=== PATIENT | male | born 1970 | race Caucasian/White ===

== ENCOUNTER 2016-12-11 09:48 | Inpatient (IN) | payer OTHER ==
[~2016-12-11] VITALS: Ht 170.2 cm; Wt 102.8 kg
[~2016-12-11 09:48] MED LIST: ATEN-100 PO; NIAC100T3 PO; SIMV20TA PO
[2016-12-11] MEDS: NS 1000P @30 MLS/HR (KVO) IV SCH (10:45)
[2016-12-11 11:31] VITALS: BP 114/85; PULSE 82; RESP 18; TEMP 98.3; O2SAT 96
[2016-12-11] MEDS ORDERED: NITR0.4S SL (11:43)
[2016-12-11] MEDS ORDERED: ASPI1TAB69 PO (11:43)
[2016-12-11] MEDS ORDERED: ATOR40TA16 PO (11:43)
[2016-12-11] MEDS ORDERED: ATEN25TA PO (11:43)
[2016-12-11] MEDS ORDERED: GAS-80CH CHEW (11:43)
[2016-12-11] MEDS ORDERED: PROT40TA PO (11:43)
[2016-12-11] MEDS ORDERED: METF500T PO (11:43)
[2016-12-11] MEDS ORDERED: MIDAZOLAM HCL 2 MG/2 ML VIAL ONE (12:29)
[2016-12-11] MEDS ORDERED: HEPARIN-NS/PF INJ 500 ML ONE (12:29)
[2016-12-11] MEDS ORDERED: HEPARIN SODIUM - IV 10,000 UNITS/10 ML VIAL ONE (12:30)
[2016-12-11] MEDS ORDERED: NITROGLYCERIN INJ 5 ML ONE (12:30)
[2016-12-11] MEDS ORDERED: MISC INFORMATION XX ONE (13:15)
[2016-12-11] MEDS ORDERED: ONDANSETRON HCL 4 MG/2 ML VIAL IVP PRN (13:15)
[2016-12-11] MEDS ORDERED: oxyCODONE/ACETAMINOPHEN 5 MG/325 MG TAB PO PRN (13:15)
[2016-12-11] MEDS ORDERED: BACITRACIN OINT 0.9 GM PKT TOP ONE (13:30)
[2016-12-11] MEDS ORDERED: IODIXANOL 320 MG/ML 50 ML VIAL (for Cath Lab) IV ONE (14:16)
[2016-12-11] MEDS ORDERED: IODIXANOL 320 MG/ML 100 ML VIAL (for Cath Lab) OTHER ONE (14:16)
[2016-12-11] MEDS ORDERED: CHLORHEXIDINE GLUCONATE 4% SOLN 120 ML BTL TOPICAL SCH (15:15)
[2016-12-11] MEDS ORDERED: SODIUM CHLORIDE 0.9% FLUSH 5 ML FLUSH IV FLUSH PRN (15:15)
[2016-12-11] MEDS ORDERED: METOPROLOL TARTRATE 25 MG TAB PO SCH (15:15)
[2016-12-11] MEDS ORDERED: INSULIN REGULAR (IV INFUSION) 100 UNITS in SODIUM CHLORIDE 0.9% INJ 100 ML IV SCH (15:15)
[2016-12-11] MEDS ORDERED: ceFAZolin 2 GM PREMIX 50 ML IV SCH (15:15)
[2016-12-11] MEDS ORDERED: CEFAZOLIN INJ 500 MG in SODIUM CHLORIDE 0.9% IRR BTL 500 ML IRRIGATION SCH (15:15)
[2016-12-11] MEDS ORDERED: ACETAMINOPHEN 325 MG TAB PO PRN (15:45)
[2016-12-11] MEDS ORDERED: SODIUM CHLORIDE 0.9% FLUSH 5 ML FLUSH FLUSH PRN (15:45)
[2016-12-11] MEDS ORDERED: NALOXONE HCL 0.4 MG/ML AMP IV PRN (15:45)
[2016-12-11] MEDS ORDERED: SIMETHICONE 80 MG CHEWABLE TAB CHEW PRN (15:45)
--- NOTE | 2016-12-11 16:00 | RADRPT ---
EXAM DATE/TIME: 12/11/2016 15:24 [facility] COMPARISON: No previous studies available for comparison. INDICATIONS : Evaluate for pneumonia, pneumothorax, or any communicable disease. Pre op CABG. MEDICAL HISTORY : None. SURGICAL HISTORY : None. ENCOUNTER: Initial ACUITY: 1 day PAIN SCORE: 0/10 LOCATION: Bilateral chest FINDINGS: A single view of the chest demonstrates the lungs to be symmetrically aerated without evidence of mas s, infiltrate or effusion. The cardiomediastinal contours are unremarkable. Osseous structures are intact. CONCLUSION: 1. No acute cardiopulmonary findings are identified. Nilton Ansari MD on December 11, 2016 at 15:58 Board Certified Radiologist. This report was verified electronically.
--- NOTE | 2016-12-11 16:10 | PD.CAR.PN ---
CVT Progress Note Subjective/Hospital Course: sts data discussed with pt RISK SCORES About the STS Risk Calculator Procedure: CAB Only Risk of Mortality: 0.421% Morbidity or Mortality: 7.923% Long Length of Stay: 2.118% Short Length of Stay: 67.903% Permanent Stroke: 0.354% Prolonged Ventilation: 5.767% DSW Infection: 0.343% Renal Failure: 1.149% Reoperation: 3.012% Objective: Vital Signs Date Time Temp Pulse Resp B/P Pulse Ox O2 Delivery O2 Flow Rate FiO2 12/11/16 11:31 98.3 82 18 114/85 96 Labs: Laboratory Tests Test 12/11/16 12/11/16 12/11/16 10:20 10:35 15:49 Blood Type O POSITIVE O POSITIVE O POSITIVE Antibody Screen NEGATIVE Blood Bank Comment Crossmatch Leukocyte-Reduced Red Blood Cells Usha Flynn Dec 11, 2016 16:10
[2016-12-11 16:21] LABS: AUTOMATED NEUTROPHIL # 5.3 TH/MM3 (1.8-7.7); BASOPHIL # 0.3 TH/MM3 (0-0.2); BASOPHIL % 3.4 % (0.0-2.0); EOSINOPHIL # 0.1 TH/MM3 (0-0.4); EOSINOPHIL % 1.8 % (0.0-4.0); HEMATOCRIT 42.9 % (39.0-51.0); HEMO FLAGS DIFF FINAL; LYMPH % 18.3 % (9.0-44.0); LYMPHOCYTE # 1.4 TH/MM3 (1.0-4.8); MEAN CORPUSCULAR HEMOGLOBIN 28.3 PG (27.0-34.0); MONO % 5.5 % (0.0-8.0); PLATELET COUNT 178 TH/MM3 (150-450); RED BLOOD COUNT 5.16 MIL/MM3 (4.50-5.90); RED CELL DISTRIBUTION WIDTH 13.8 % (11.6-17.2); WHITE BLOOD COUNT 7.5 TH/MM3 (4.0-11.0)
[2016-12-11 16:27] LABS: PROTHROMBIN TIME - PATIENT 10.5 SEC (9.8-11.6)
[2016-12-11 16:32] LABS: HEMOGLOBIN A1a 1.6 %; HEMOGLOBIN A1b 1.9 %; HEMOGLOBIN Ao 82.9 %; HEMOGLOBIN LA1C 2.3 %; HEMOGLOBIN P3 4.1 %
[2016-12-11 16:42] LABS: ANION GAP 9 MEQ/L (5-15); BICARBONATE 25.2 MEQ/L (21.0-32.0); BLOOD UREA NITROGEN 15 MG/DL (7-18); CHLORIDE 108 MEQ/L (98-107); GLOMERULAR FILTRATION RATE 82 ML/MIN (>89); POTASSIUM 3.8 MEQ/L (3.5-5.1); SODIUM (NA) 142 MEQ/L (136-145)
[2016-12-11 19:00] VITALS: PULSE 90
[2016-12-11 19:06] LABS: BLOOD, URINE TRACE (NEG); COMMENT (UR) CATH-CULT NOT IND; CULTURE IF INDICATED CATH CULTURE NOT IND; GLUCOSE,URINE NEG (NEG); KETONE, URINE NEG (NEG); MUCUS URINE FEW /lpf (OCC); NITRITE,URINE NEG (NEG); URINE COLOR YELLOW (YELLW/STRAW)
[2016-12-11 20:00] VITALS: BP 139/84; PULSE 88; PULSE 94; RESP 18; TEMP 98.3; O2SAT 98
--- NOTE | 2016-12-11 20:08 | RADRPT ---
EXAM DATE/TIME: 12/11/2016 17:21 [facility] COMPARISON: No previous studies available for comparison. INDICATIONS : Preop CABG. MEDICAL HISTORY : Hypertension. Gastroesophageal reflux disease. Diabetes mellitus type 2. Hyperlipidemia. SURGICAL HISTORY : Cardiac cath. ENCOUNTER: Initial ACUITY: 1 week PAIN SCORE: 0/10 LOCATION: Bilateral neck PEAK SYSTOLIC VELOCITIES (cm/sec): ICA/CCA RATIO: Right: 1.3 Left: 1.0 ICA: Right: 96 Left: 78 CCA: Right: 73 Left: 78 ECA: Right: 86 Left: 81 VERTEBRAL: Right: 41 antegrade Left: 68 antegrade Elevated flow velocities and ICA/CCA ratios have been found to correlate with increased degrees of vessel stenosis, calculated as percentage of diameter relative to a normal segment of distal ICA/CCA FINDINGS: RIGHT CAROTID: No significant stenosis is visualized. The waveforms are within normal limits. LEFT CAROTID: No significant stenosis is visualized. The waveforms are within normal limits. VERTEBRAL ARTERIES: Antegrade flow is seen in both vertebral arteries. MISCELLANEOUS: None. CONCLUSION: 1. Minimal visible plaque around the right carotid bifurcation. No hemodynamically significant stenos is. Rene Dumont MD on December 11, 2016 at 20:03 Board Certified Radiologist. This report was verified electronically.
--- NOTE | 2016-12-11 20:10 | RADRPT ---
EXAM DATE/TIME: 12/11/2016 17:40 [facility] COMPARISON: No previous studies available for comparison. INDICATIONS : Preop cardiac surgery. MEDICAL HISTORY : Gastroesophageal reflux disease. Hypertension. Diabetes mellitus type 2. Hyperlipidemia. SURGICAL HISTORY : Cardiac cath. ENCOUNTER: Initial ACUITY: 1 week PAIN SCORE: 0/10 LOCATION: Bilateral leg. TECHNIQUE: Venous ultrasound of the left and right leg was performed from the inguinal ligament to the proximal calf. Real-time, color Doppler and spectral tracing, compression and augmentation techniques were us ed. FINDINGS: RIGHT LEG: There is normal compressibility of the deep venous system from the inguinal region to the proximal ca lf. No echogenic clot is seen in the lumen of the common femoral, femoral, popliteal, and posterior tibial veins. There is a normal response of the venous system to proximal and distal augmentation an d respiration. LEFT LEG: There is normal compressibility of the deep venous system from the inguinal region to the proximal ca lf. No echogenic clot is seen in the lumen of the common femoral, femoral, popliteal, and posterior tibial veins. There is a normal response of the venous system to proximal and distal augmentation an d respiration. CONCLUSION: Normal examination. Rene Dumont MD on December 11, 2016 at 20:06 Board Certified Radiologist. This report was verified electronically.
--- NOTE | 2016-12-11 20:24 | RADRPT ---
EXAM DATE/TIME: 12/11/2016 17:48 [facility] COMPARISON: No previous studies available for comparison. INDICATIONS : Preop cardiac surgery. MEDICAL HISTORY : Hypertension. Gastroesophageal reflux disease. Diabetes mellitus type 2. Hyperlipidemia. SURGICAL HISTORY : Cardiac cath. ENCOUNTER: Initial ACUITY: 1 week PAIN SCORE: 0/10 LOCATION: Bilateral leg. GREATER SAPHENOUS VEIN THIGH: PROXIMAL: Right 5 mm Left 5 mm MID: Right 3 mm Left 3 mm DISTAL: Right 3 mm Left 3 mm CALF: PROXIMAL: Right 2 mm Left 3 mm MID: Right 2 mm Left 2 mm DISTAL: Right 1 mm Left 3 mm FINDINGS: The venous system of the lower extremities are patent by color Doppler imaging. Measurements of the leg veins (in mm) are listed above. CONCLUSION: Normal examination for a patient of this age. Rene Dumont MD on December 11, 2016 at 20:09 Board Certified Radiologist. This report was verified electronically.
[2016-12-11 21:00] VITALS: PULSE 83
[2016-12-11] MEDS ORDERED: SODIUM CHLORIDE 0.9% FLUSH 5 ML FLUSH IV FLUSH SCH (21:00)
[2016-12-11] MEDS: SODIUM CHLORIDE 0.9% FLUSH 5 ML FLUSH FLUSH SCH (21:00)
[2016-12-11] MEDS: DOCUSATE SODIUM 100 MG CAP PO SCH (21:00)
[2016-12-11] MEDS: ATORVASTATIN 40 MG TAB PO SCH (21:48)
[2016-12-11] MEDS: ATENOLOL 25 MG TAB PO SCH (21:48)
[2016-12-11 22:00] VITALS: PULSE 84
[2016-12-11 23:00] VITALS: BP 146/92; PULSE 73; PULSE 79; RESP 18; TEMP 98; O2SAT 98
[2016-12-12] VITALS (25 sets, daily range): BP systolic 103–142; BP diastolic 56–84; PULSE 63–95; RESP 10–20; TEMP 98.4–99.4; O2SAT 92–98
[2016-12-12] MEDS ORDERED: LIDOCAINE HCL 1% 30 ML VIAL OTHER ONE (05:00)
[2016-12-12] MEDS ORDERED: VECURONIUM BROMIDE 10 MG VIAL IV ONE (05:00)
[2016-12-12] MEDS ORDERED: ARTIFICIAL TEARS OPTH OINT 3.5 APPLIC/3.5 GM TUBO ONE ×2 (05:00→11:21)
[2016-12-12] MEDS ORDERED: DOPamine INJ PREMIX 500 ML IV ONE (05:00)
[2016-12-12] MEDS ORDERED: CALCIUM CHLORIDE 10% SOLN 1 GRAM/10 ML SYR IV ONE (05:00)
[2016-12-12] MEDS ORDERED: DEXMEDETOMIDINE INJ 50 ML IV ONE (05:00)
[2016-12-12] MEDS ORDERED: PHENYLEPHRINE HCL 10 MG/ML VIAL IV ONE (05:00)
[2016-12-12] MEDS ORDERED: NITROGLYCERIN-DEXTROSE INJ 250 ML IV ONE (05:00)
[2016-12-12] MEDS ORDERED: MAGNESIUM SULFATE 1000 MG/2 ML VIAL (PED) IV ONE (05:00)
[2016-12-12] MEDS ORDERED: AMIODARONE HCL 150 MG/3 ML VIAL IV ONE (05:00)
[2016-12-12] MEDS ORDERED: PROTAMINE SULFATE 250 MG/25 ML VIAL IV ONE ×2 (05:00→12:13)
[2016-12-12] MEDS ORDERED: HEPARIN SODIUM - SQ 10,000 UNITS/ML VIAL SQ ONE (05:00)
[2016-12-12] MEDS ORDERED: GLYCOPYRROLATE 0.2 MG/ML VIAL IV ONE (05:00)
[2016-12-12] MEDS ORDERED: AMINOCAPROIC ACID INJ 250 MG/ML 20 ML VIAL IV ONE (05:00)
[2016-12-12 07:00] LABS: AUTOMATED NEUTROPHIL # 6.2 TH/MM3 (1.8-7.7); BASOPHIL # 0.1 TH/MM3 (0-0.2); BASOPHIL % 0.9 % (0.0-2.0); EOSINOPHIL # 0.2 TH/MM3 (0-0.4); EOSINOPHIL % 2.2 % (0.0-4.0); HEMATOCRIT 45.7 % (39.0-51.0); HEMO FLAGS DIFF FINAL; LYMPH % 22.2 % (9.0-44.0); MEAN CELL VOLUME 84.1 FL (80.0-100.0); MEAN CORPUSCULAR HEMOGLOBIN 27.9 PG (27.0-34.0); MEAN CORPUSCULAR HGB CONC 33.2 % (32.0-36.0); MONO % 7.2 % (0.0-8.0); NEUT % 67.5 % (16.0-70.0); PLATELET COUNT 196 TH/MM3 (150-450); RED BLOOD COUNT 5.43 MIL/MM3 (4.50-5.90); RED CELL DISTRIBUTION WIDTH 13.7 % (11.6-17.2); WHITE BLOOD COUNT 9.1 TH/MM3 (4.0-11.0)
[2016-12-12 07:20] LABS: BICARBONATE 27.2 MEQ/L (21.0-32.0); POTASSIUM 4.2 MEQ/L (3.5-5.1)
--- NOTE | 2016-12-12 08:23 | PD.CARD.PN ---
Subjective Subjective Remarks doing well no events overnight Objective Medications Active Medications Acetaminophen (Tylenol) 650 mg Q4H PRN PO; Start 12/11/16 at 15:45 Aspirin (Ecotrin Ec) 81 mg DAILY PO; Start 12/12/16 at 09:00; Status Future Hold Atenolol (Tenormin) 25 mg BID PO Last administered on 12/11/16 21:48; Admin Dose 25 MG; Start 12/11/16 at 21:00 Atorvastatin Calcium (Lipitor) 40 mg HS PO Last administered on 12/11/16 21:48 ; Admin Dose 40 MG; Start 12/11/16 at 21:00 Bacitracin (Bacitracin Oint Packet) 0.9 gm ONCE ONCE TOP; Start 12/11/16 at 13: 30; Stop 12/11/16 at 13:31; Status DC Docusate Sodium (Colace) 100 mg Q12HR PO; Start 12/11/16 at 21:00 Fentanyl Citrate (fentaNYL INJ) 100 mcg STK-MED ONCE .ROUTE Last administered on 12/11/16 12:30; Admin Dose 100 MCG; Start 12/11/16 at 12:30; Stop 12/11/16 at 12:31; Status DC Heparin Sodium (Porcine) 94848 units 10,000 units STK-MED ONCE .ROUTE Last administered on 12/11/16 12:30; Admin Dose 10,000 UNITS; Start 12/11/16 at 12: 30; Stop 12/11/16 at 12:31; Status DC Heparin Sodium/ Sodium Chloride (Heparin-NS/Pf Inj) 500 ml @ As Directed STK- MED ONCE .ROUTE Last administered on 12/11/16 12:29; Admin Dose 100 MLS/HR; Start 12/11/16 at 12:29; Stop 12/11/16 at 12:30; Status DC Iodixanol (VISIPAQUE 320 INJ (Charge Aide)) 50 ml STK-MED ONCE IV; Start 12/11/16 at 14:16; Stop 12/11/16 at 14:17; Status DC Iodixanol (VISIPAQUE 320 INJ (Charge Aide)) 100 ml STK-MED ONCE OTHER; Start at 14:16; Stop 12/11/16 at 14:17; Status DC IV Flush (NS Flush) 2 ml BID FLUSH Last administered on 12/11/16 21:00; Admin Dose 2 ML; Start 12/11/16 at 21:00 IV Flush (NS Flush) 2 ml BID IV FLUSH; Start 12/11/16 at 21:00; Stop 12/11/16 at 21:00; Status DC IV Flush (NS Flush) 2 ml UNSCH PRN FLUSH; Start 12/11/16 at 15:45 IV Flush (NS Flush) 2 ml UNSCH PRN IV FLUSH; Start 12/11/16 at 15:15; Stop at 15:48; Status DC Midazolam HCl (Versed Inj) 2 mg STK-MED ONCE .ROUTE Last administered on 12:29; Admin Dose 2 MG; Start 12/11/16 at 12:29; Stop 12/11/16 at 12:30; Status DC Miscellaneous Information 1 ONCE ONCE XX; Start 12/11/16 at 13:15; Stop at 13:29; Status DC Naloxone HCl (Narcan Inj) 0.4 mg UNSCH PRN IV; Start 12/11/16 at 15:45 Nitroglycerin (Nitroglycerin Inj) 5 ml @ As Directed STK-MED ONCE .ROUTE Last administered on 12/11/16 12:30; Admin Dose 1 MLS/HR; Start 12/11/16 at 12:30; Stop 12/11/16 at 12:31; Status DC Ondansetron HCl (Zofran Inj) 4 mg Q6H PRN IVP; Start 12/11/16 at 13:15; Stop at 15:50; Status DC Ondansetron HCl (Zofran Inj) 4 mg Q6H PRN IVP; Start 12/11/16 at 15:45 Oxycodone/ Acetaminophen (Percocet 5-325 Mg) 1 tab Q4H PRN PO; Start 12/11/16 at 13:15 Oxycodone/ Acetaminophen (Percocet 5-325 Mg) 2 tab Q4H PRN PO; Start 12/11/16 at 13:15 Pantoprazole Sodium (Protonix) 40 mg DAILY PO; Start 12/11/16 at 15:45 Simethicone (Mylicon Chew) 80 mg QID PRN CHEW; Start 12/11/16 at 15:45 Sodium Chloride 1,000 ml @ 30 mls/hr Q24H IV; Start 12/11/16 at 10:45 Vital Signs / I&O Vital Signs Date Time Temp Pulse Resp B/P Pulse Ox O2 Delivery O2 Flow Rate FiO2 12/12/16 07:00 98.5 69 20 142/84 98 12/12/16 07:00 73 12/12/16 06:00 76 12/12/16 05:00 70 12/12/16 04:00 63 12/12/16 03:00 76 12/12/16 02:00 79 12/12/16 01:00 79 12/12/16 00:00 68 12/11/16 23:00 79 12/11/16 23:00 98.0 73 18 146/92 98 12/11/16 22:00 84 12/11/16 21:00 83 12/11/16 20:00 98.3 88 18 139/84 98 12/11/16 20:00 94 12/11/16 19:00 90 12/11/16 13:24 95 Room Air 12/11/16 11:31 98.3 82 18 114/85 96 I/O 12/11/16 12/11/16 12/11/16 12/12/16 12/12/16 12/12/16 07:00 15:00 23:00 07:00 15:00 23:00 Intake Total 240 ml Output Total 300 ml Balance -60 ml Intake Oral 240 ml Output Urine Total 300 ml # Bowel Movements 1 Physical Exam GENERAL: SKIN: Warm and dry. HEAD: Normocephalic. EYES: No scleral icterus. No injection or drainage. NECK: Supple, trachea midline. No JVD or lymphadenopathy. CARDIOVASCULAR: Regular rate and rhythm without murmurs, gallops, or rubs. RESPIRATORY: Breath sounds equal bilaterally. No accessory muscle use. GASTROINTESTINAL: Abdomen soft, non-tender, nondistended. MUSCULOSKELETAL: No cyanosis, or edema. BACK: Nontender without obvious deformity. No CVA tenderness. Laboratory Laboratory Tests Test 12/11/16 12/11/16 12/11/16 12/11/16 10:20 10:35 15:49 15:50 Blood Type O POSITIVE O POSITIVE O POSITIVE Antibody Screen NEGATIVE Blood Bank Comment Crossmatch Leukocyte-Reduced Red Blood Cells White Blood Count 7.5 TH/MM3 Red Blood Count 5.16 MIL/MM3 Hemoglobin 14.6 GM/DL Hematocrit 42.9 % Mean Corpuscular Volume 83.0 FL Mean Corpuscular Hemoglobin 28.3 PG Mean Corpuscular Hemoglobin 34.0 % Concent Red Cell Distribution Width 13.8 % Platelet Count 178 TH/MM3 Mean Platelet Volume 9.1 FL Neutrophils (%) (Auto) 71.0 % Lymphocytes (%) (Auto) 18.3 % Monocytes (%) (Auto) 5.5 % Eosinophils (%) (Auto) 1.8 % Basophils (%) (Auto) 3.4 % Neutrophils # (Auto) 5.3 TH/MM3 Lymphocytes # (Auto) 1.4 TH/MM3 Monocytes # (Auto) 0.4 TH/MM3 Eosinophils # (Auto) 0.1 TH/MM3 Basophils # (Auto) 0.3 TH/MM3 CBC Comment DIFF FINAL Differential Comment Prothrombin Time 10.5 SEC Prothromb Time International 1.0 RATIO Ratio Test 12/11/16 12/11/16 12/11/16 12/12/16 15:59 18:45 20:45 06:04 Sodium Level 142 MEQ/L 141 MEQ/L Potassium Level 3.8 MEQ/L 4.2 MEQ/L Chloride Level 108 MEQ/L 107 MEQ/L Carbon Dioxide Level 25.2 MEQ/L 27.2 MEQ/L Anion Gap 9 MEQ/L 7 MEQ/L Blood Urea Nitrogen 15 MG/DL 13 MG/DL Creatinine 0.98 MG/DL 1.02 MG/DL Estimat Glomerular Filtration 82 ML/MIN 78 ML/MIN Rate Random Glucose 176 MG/DL 129 MG/DL Hemoglobin A1c 6.8 % Calcium Level 8.2 MG/DL 8.7 MG/DL Urine Color YELLOW Urine Turbidity CLEAR Urine pH 6.0 Urine Specific [place] GREATER THAN 1.050 Urine Protein TRACE mg/dL Urine Glucose (UA) NEG mg/dL Urine Ketones NEG mg/dL Urine Occult Blood TRACE Urine Nitrite NEG Urine Bilirubin NEG Urine Urobilinogen LESS THAN 2.0 MG/DL Urine Leukocyte Esterase NEG Urine RBC 5 /hpf Urine WBC LESS THAN 1 /hpf Urine Mucus FEW /lpf Microscopic Urinalysis Comment CATH-CULT NOT IND Nasal Screen MRSA (PCR) NEGATIVE White Blood Count 9.1 TH/MM3 Red Blood Count 5.43 MIL/MM3 Hemoglobin 15.2 GM/DL Hematocrit 45.7 % Mean Corpuscular Volume 84.1 FL Mean Corpuscular Hemoglobin 27.9 PG Mean Corpuscular Hemoglobin 33.2 % Concent Red Cell Distribution Width 13.7 % Platelet Count 196 TH/MM3 Mean Platelet Volume 9.2 FL Neutrophils (%) (Auto) 67.5 % Lymphocytes (%) (Auto) 22.2 % Monocytes (%) (Auto) 7.2 % Eosinophils (%) (Auto) 2.2 % Basophils (%) (Auto) 0.9 % Neutrophils # (Auto) 6.2 TH/MM3 Lymphocytes # (Auto) 2.0 TH/MM3 Monocytes # (Auto) 0.7 TH/MM3 Eosinophils # (Auto) 0.2 TH/MM3 Basophils # (Auto) 0.1 TH/MM3 CBC Comment DIFF FINAL Differential Comment Imaging Last Impressions Lower Extremity Ultrasound 12/11/16 0000 Signed Impressions: Service Date/Time: Sunday, December 11, 2016 17:48 - CONCLUSION: Normal examination for a patient of this age. Rene Dumont MD Chest X-Ray 12/11/16 0000 Signed Impressions: Service Date/Time: Sunday, December 11, 2016 15:24 - CONCLUSION: 1. No acute cardiopulmonary findings are identified. Nilton Ansari MD Carotid Artery Ultrasound 12/11/16 0000 Signed Impressions: Service Date/Time: Sunday, December 11, 2016 17:21 - CONCLUSION: 1. Minimal visible plaque around the right carotid bifurcation. No hemodynamically significant stenosis. Rene Dumont MD Assessment and Plan Assessment and Plan unstable angina - plan for CABG today Minor,Brandan Saez MD Dec 12, 2016 08:23
--- NOTE | 2016-12-12 08:34 | MH ---
cc: KELLY FISHER DATE OF ADMISSION 12/11/2016 DATE OF 1970. HISTORY OF THE PRESENT ILLNESS A 46-year-old male, patient of Dr. Gary Mesa, Dr. Stevenson apparently has been having some chest pressure on and off for the past 10 months had some loss of insurance but finally got under his 's policy but then noticed he was having some increasing chest pressure for the last two months with or without exertion, associated with some shortness of breath. He felt like after he would be eating he would have some belching and bloating. That concerned him. He has been diagnosed with some dyspepsia and gastroesophageal reflux disease and he is taking medications for that. He underwent an exercise stress test at Dr. Stevenson's office which he was positive for ischemia. He then underwent cardiac cath today by Dr. Stevenson showing a left main disease of 30%, proximal LAD 70%, mid distal LAD 30%, diagonal 75%. The circ was 75%. The OM was 95%. The RCA was 100% occluded. EF of 45%. Cardiac risk factors include age, family history, diabetes mellitus, hypertension, obese with a BMI of 35. PAST MEDICAL HISTORY 1. Hypertension. 2. Hyperlipidemia. 3. Abnormal EKG. FAMILY HISTORY Positive for mother had heart disease, had stents, hypertension, breast CA. Father is a diabetic, has had gastric bypass. SOCIAL HISTORY The patient , two children. Positive for tobacco abuse. Smokes one-pack for the last 30 years. Rare alcohol. 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 REVIEW OF SYSTEMS GENERAL: No night sweats, fever, heat or cold intolerance. SKIN: itching or hives. HEENT: No blurred vision, hearing loss. RESPIRATORY: Positive for shortness of breath when he gets chest pressure. CARDIOVASCULAR: As above in HPI. GASTROINTESTINAL: He does have frequent belching, abdominal bloating. GENITOURINARY: No burning, frequency, urgency. CENTRAL NERVOUS SYSTEM: No history of TIA, CVA, seizure disorder. ENDOCRINE: Positive for diabetes. PHYSICAL EXAMINATION VITAL SIGNS: On exam blood pressure 114/80, heart rate of 82, afebrile. GENERAL: The patient awake, alert, no acute distress. HEENT: Head is normocephalic, atraumatic. Pupils equal and reactive. Oral mucosa pink, moist. NECK: Supple. No JVD. CARDIOVASCULAR: Heart sounds S1-S2, regular rate and rhythm. No rubs, murmurs, gallops. LUNGS: Clear to auscultation. No wheezes, rales or rhonchi. ABDOMEN: Soft, nontender. No masses or organomegaly. EXTREMITIES: No cyanosis, clubbing or edema. LABORATORY FINDINGS Shows hemoglobin 15, hematocrit of 47. White cell count 8.7, platelet count 204. Sodium 138, potassium 4.6, BUN of 22 with a creatinine of 0.9. INR of 0.94. EKG shows sinus rhythm with some poor R-wave progression, some T-wave inversion in the lateral leads, inferior lateral leads. IMPRESSION A 46-year-old male with chest pain, positive stress test, positive coronary catheterization by Dr. Stevenson with an EF of 45%, multivessel disease. Cardiac films have been reviewed by Dr. Kelly Fisher. Procedures, alternatives and risks have been discussed with the patient. Plan is for possible coronary artery bypass grafting x4. To follow the case in the a.m. The patient is agreeable to proceed. In the meantime we will add additional testing to include carotid ultrasound, vein mapping and lab work. DICTATED BY: ZULLY Hardin MD YUDY Singh/KK /3:49 PM /8:25 AM
[2016-12-12] MEDS ORDERED: ASPIRIN EC 81 MG TABEC PO SCH (09:00)
[2016-12-12] MEDS: DOCUSATE SODIUM 100 MG CAP PO SCH ×2 (09:00→21:27)
[2016-12-12] MEDS: ATENOLOL 25 MG TAB PO SCH (09:45)
[2016-12-12] MEDS: PANTOPRAZOLE SOD 40 MG DELAYED RELEASE TAB PO SCH (09:45)
[2016-12-12] MEDS: SODIUM CHLORIDE 0.9% FLUSH 5 ML FLUSH FLUSH SCH ×2 (09:46→21:28)
--- NOTE | 2016-12-12 10:18 | PD.CAR.PN ---
CVT Progress Note Subjective/Hospital Course: 46/ male c/o of chest pressure off and on x 10 months, worsening with and without exertion past couple of months, underwent stress test , which showed depression in inferior lateral leads.. Then underwent heart cath per Dr Stevenson multi vessel disease EF 45 % / eval for Coronary artery Bypass grafting PMH: HTN, HLP, obesity, tobacco abuse, DM, dyspepsia, GERD 12/12 scheduled for surgery this afternoon Objective: GENERAL: SKIN: Warm and dry. HEAD: Normocephalic. EYES: No scleral icterus. No injection or drainage. NECK: Supple, trachea midline. No JVD or lymphadenopathy. CARDIOVASCULAR: Regular rate and rhythm without murmurs, gallops, or rubs. RESPIRATORY: Breath sounds equal bilaterally. No accessory muscle use. GASTROINTESTINAL: Abdomen soft, non-tender, nondistended. MUSCULOSKELETAL: No cyanosis, or edema. BACK: Nontender without obvious deformity. No CVA tenderness. Vital Signs Date Time Temp Pulse Resp B/P Pulse Ox O2 Delivery O2 Flow Rate FiO2 12/12/16 09:00 71 12/12/16 07:00 98.5 69 20 142/84 98 12/12/16 07:00 73 12/12/16 06:00 76 12/12/16 05:00 70 12/12/16 04:00 63 12/12/16 03:00 76 12/12/16 02:00 79 12/12/16 01:00 79 12/12/16 00:00 68 12/11/16 23:00 79 12/11/16 23:00 98.0 73 18 146/92 98 12/11/16 22:00 84 12/11/16 21:00 83 12/11/16 20:00 98.3 88 18 139/84 98 12/11/16 20:00 94 12/11/16 19:00 90 12/11/16 13:24 95 Room Air 12/11/16 11:31 98.3 82 18 114/85 96 Labs: Laboratory Tests Test 12/12/16 06:04 White Blood Count 9.1 TH/MM3 (4.0-11.0) Red Blood Count 5.43 MIL/MM3 (4.50-5.90) Hemoglobin 15.2 GM/DL (13.0-17.0) Hematocrit 45.7 % (39.0-51.0) Mean Corpuscular Volume 84.1 FL (80.0-100.0) Mean Corpuscular Hemoglobin 27.9 PG (27.0-34.0) Mean Corpuscular Hemoglobin 33.2 % Concent (32.0-36.0) Red Cell Distribution Width 13.7 % (11.6-17.2) Platelet Count 196 TH/MM3 (150-450) Mean Platelet Volume 9.2 FL (7.0-11.0) Neutrophils (%) (Auto) 67.5 % (16.0-70.0) Lymphocytes (%) (Auto) 22.2 % (9.0-44.0) Monocytes (%) (Auto) 7.2 % (0.0-8.0) Eosinophils (%) (Auto) 2.2 % (0.0-4.0) Basophils (%) (Auto) 0.9 % (0.0-2.0) Neutrophils # (Auto) 6.2 TH/MM3 (1.8-7.7) Lymphocytes # (Auto) 2.0 TH/MM3 (1.0-4.8) Monocytes # (Auto) 0.7 TH/MM3 (0-0.9) Eosinophils # (Auto) 0.2 TH/MM3 (0-0.4) Basophils # (Auto) 0.1 TH/MM3 (0-0.2) CBC Comment DIFF FINAL Differential Comment Sodium Level 141 MEQ/L (136-145) Potassium Level 4.2 MEQ/L (3.5-5.1) Chloride Level 107 MEQ/L (98-107) Carbon Dioxide Level 27.2 MEQ/L (21.0-32.0) Anion Gap 7 MEQ/L (5-15) Blood Urea Nitrogen 13 MG/DL (7-18) Creatinine 1.02 MG/DL (0.60-1.30) Estimat Glomerular Filtration 78 ML/MIN (>89) Rate Random Glucose 129 MG/DL (74-106) Calcium Level 8.7 MG/DL (8.5-10.1) Result Diagram: 12/12/1604 12/12/16603 Telemetry: NSR (1) Coronary artery disease Plan: for surgery today (2) Diabetes mellitus (3) Hyperlipemia (4) Tobacco abuse (5) Hypertension Usha Flynn Dec 12, 2016 10:18
[2016-12-12] MEDS: NS 1000P @30 MLS/HR (KVO) IV SCH (10:45)
[2016-12-12] MEDS ORDERED: VASOPRESSIN INJ 20 UNITS/ML VIAL ONE (11:20)
[2016-12-12] MEDS ORDERED: CARDIOPLEGIC IRR 1,000 ML ONE (11:28)
[2016-12-12] MEDS ORDERED: POTASSIUM CHLORIDE 40 MEQ/20 ML VIAL ONE ×2 (11:29)
[2016-12-12] MEDS ORDERED: ALBUMIN HUMAN 25% 12.5 GM/50 ML BAGP IV ONE (11:30)
[2016-12-12] MEDS ORDERED: SODIUM BICARBONATE 8.4% INJ 50 ML ONE (11:30)
[2016-12-12] MEDS ORDERED: MANNITOL INJ 50 ML ONE (11:30)
[2016-12-12] MEDS ORDERED: POTASSIUM CHLORIDE 20 MEQ/10 ML VIAL ONE (11:30)
[2016-12-12] MEDS ORDERED: HEPARIN SODIUM - SQ 10,000 UNITS/ML VIAL ONE ×2 (11:31→12:07)
[2016-12-12] MEDS ORDERED: HEPARIN SODIUM - IV 10,000 UNITS/10 ML VIAL ONE ×2 (11:31→12:06)
--- NOTE | 2016-12-12 12:05 | MA ---
cc: JUANA PATE DATE: 12/11/2016 PROCEDURE PERFORMED 1. Fluoroscopy with interpretation. 2. Coronary angiography. 3. Left heart catheterization. 4. Left ventriculography. METHOD The risks, benefits and alternatives were discussed with the patient. The patient understood and consented to the procedure. The patient was brought into the catheterization lab and placed on the catheterization table. The patient wrist was prepped and draped in sterile fashion. The right wrist was anesthetized with 2% lidocaine. The right radial artery was cannulated. A 6-Kinyarwanda, 7 cm sheath was placed without difficulty. 5000 units of heparin was administered. LEFT HEART CATHETERIZATION A 6-Kinyarwanda angled pigtail catheter was advanced across the aortic valve without difficulty. Intraventricular hemodynamics measured at 120/10 mmHg. LEFT VENTRICULOGRAPHY Left ventriculography was performed with right anterior oblique view using a 6-Kinyarwanda angled pigtail catheter and a 30 cc contrast injection with good opacification. Left ventricular ejection fraction visually estimated at 45-50%. There was basal inferior wall severe hypokinesis with a small aneurysm. CORONARY ANGIOGRAPHY 1. The left main coronary is small caliber size with mild disease throughout. 2. The left anterior descending coronary artery has 70% proximal stenosis at the bifurcation of a moderate-sized diagonal branch. The diagonal branch has 80% stenosis through its proximal segment. The remainder of the left anterior descending coronary has minor luminal irregularities. 3. The left circumflex gives rise to a high obtuse marginal branch which is small to moderate caliber size, 95% stenosis. There is a second and third obtuse marginal branch which are smaller caliber size also with moderate disease proximally. The circumflex also has diffuse disease throughout its mid segment. 4. The right coronary is a dominant vessel giving rise to a posterior descending branch. The right coronary is occluded in its proximal segment. There is both [id number] and [id number] collateralization. CONCLUSIONS 1. Severe three-vessel coronary artery disease. 2. Mildly reduced left ventricular systolic function with regional inferior wall akinesis in the basal segment. PLAN Given the patient's age, diabetic status in addition to multivessel disease, I think he would be best served with consideration for surgical revascularization. We will consult Dr. Kelly Fisher. MD FAYE Felipe/HECTOR Meek: 12/12/2016/8:15 AM /11:54 AM
[2016-12-12] MEDS ORDERED: VANCOMYCIN HCL 1000 MG VIAL ONE (12:07)
[2016-12-12] MEDS ORDERED: methylPREDNISolone SOD SUCC 125 MG/2 ML VIAL ONE (12:08)
[2016-12-12] MEDS ORDERED: SODIUM CHLORIDE 0.9% INJ 200 ML IV ONE (12:13)
[2016-12-12] MEDS ORDERED: NORMOSOL R INJ 2,000 ML IV ONE (12:13)
[2016-12-12] MEDS ORDERED: SODIUM CHLOR 0.9% 250 ML INJ 750 ML IV ONE (12:13)
[2016-12-12] MEDS ORDERED: LACTATED RINGER'S 1000 ML INJ 2,000 ML IV ONE (12:13)
[2016-12-12] MEDS ORDERED: SODIUM CHLORID 0.9% 500 ML INJ 500 ML IV ONE (12:13)
[2016-12-12] MEDS: PAPAVERINE INJ 60 MG, NITROGLYCERIN INJ 100 MCG, DILTIAZEM INJ 100 MG in SODIUM CHLORID... IRRIGATION SCH ×2 (14:36→14:37)
--- NOTE | 2016-12-12 16:37 | EKG ---
Date Performed: 12/11/2016 Time Performed: 10:55:36 PTAGE: 46 years EKG: Sinus rhythm Possible anterior infarct - age undetermined Inferior/lateral ST-T changes are nonspecific Abnormal ECG NO PREVIOUS TRACING DOCTOR: Mercedez Ponce Interpretating Date/Time 12/12/2016 16:34:28
[2016-12-12] MEDS ORDERED: LACTATED RINGER'S 1000 ML INJ 500 ML IV PRN (16:46)
--- NOTE | 2016-12-12 16:55 | PD.OP ---
cc: Kelly Fisher MD; Brandan Stevenson MD Operative Report Date of Surgery: Dec 12, 2016 Preoperative Diagnosis: (1) Coronary artery disease Postoperative Diagnosis: same Procedure: CABG x 3 BLOUNT to LAD - fair SVG to OM1 - good SVG to PDA - poor EVH Anesthesia: Dr. Molina Surgeon: Kelly Fisher Electrician Master(s): Jm Richardson Operation and Findings: The risks, benefits, complications, treatment options, and expected outcomes were discussed with the patient. The possibilities of reaction to medication, pulmonary aspiration, perforation of viscus, bleeding, recurrent infection, the need for additional procedures, failure to diagnose a condition, and creating a complication requiring transfusion or operation were discussed with the patient. The patient concurred with the proposed plan, giving informed consent. The site of surgery properly noted/marked. The patient was taken to Operating Room, identified as Honorio Roland and the procedure verified as CABG, EVH. A Time Out was held and the above information confirmed. Standard monitoring lines and Xiong catheter were placed. General anesthesia was induced. The patient was prepped and draped in a sterile fashion. A median sternotomy was performed and electrocautery was used to obtain hemostasis. The left internal mammary artery was procured as a pedicle from the 7th rib to the 1st rib in the usual manner. Simultaneously left greater saphenous vein was procured from the left leg using a minimally invasive endoscopic technique. The vein was prepared for anastomosis and the leg wound was irrigated and closed in 2 layers. The pericardium was opened and a pericardial sling was created using interrupted 0 silk sutures. The patient was heparinized for cardiopulmonary bypass and the distal mammary pedicle was instrumented for anastomosis. The heart was instrumented for cardiopulmonary bypass in the usual manner. Antegrade blood cardioplegia was employed. The patient was placed on cardiopulmonary bypass. An aortic cross-clamp was applied and the heart was arrested using cold blood cardioplegia. Antegrade cardioplegia was administered after he each anastomosis. After adequate arrest, the distal right coronary circulation was investigated and the PDA was opened with a [place] blade and found to be a <1 millimeter poor target. Saphenous vein was approximated to the PDA artery using a running 7 0 Prolene suture. The graft was measured for length and orientation and the proximal anastomosis was constructed to the ascending aorta using a running 5 0 Prolene suture after creating an aortotomy with a 5 millimeter punch. The 1st circumflex marginal artery was then opened with a [place] blade and found to be a 1.5 millimeter good target. The OM1 artery was intramyocardial. Saphenous vein was approximated to the OM1 artery using a running 7 0 Prolene suture. The graft was measured for length and orientation and was suspended from the pericardium. The distal LAD was opened with a [place] blade and found to be a 1.5 millimeter fair target with diffuse disease. The left internal mammary artery was approximated to the LAD using a running 7 0 Prolene suture. The pedicle was attached to the epicardium using interrupted 5 0 silk suture. The patient was systemically rewarmed and received a hotshot dose of warm blood cardioplegia. The aorta was vented and the proximal anastomosis to the OM1 graft was accomplished using a running 5 0 Prolene suture after creating an aortotomy was a 5 millimeter punch. The cross-clamp was removed and all proximal and distal anastomoses were examined for hemostasis. Temporary atrial pacing on wires were positioned and brought out through the skin in the usual manner. The patient was paced at 80 beats per minute and weaned from cardiopulmonary bypass. Protamine was given. There was no adverse reaction. Decannulation was carried out without incident. Wound was checked for hemostasis which was obtained using electrocautery. A 36 [place] mediastinal and 32 [place] left pleural chest tubes were placed and secured to the skin with 0 silk suture. The sternum was closed with stainless steel wire. The fascia was closed with 1. PDS. The subcutaneous tissue was closed using a running 2-0 Vicryl suture. The skin was closed with 4-0 Monocryl. Sterile dressings were placed. At the end of the operation, all sponge, instruments, and needle counts were correct. The patient was transferred to the CVICU in stable condition. Findings: Diffuse CAD, OM2, OM3, and PLB were too small and diseased to graft XC: 73 min CPB: 84 min Drains: mediastinal x 1 pleural x 1 Complications: none Disposition: to CVICU in stable condition Pacing Wires: 2 atrial Kelly Fisher MD Dec 12, 2016 16:55
[2016-12-12] MEDS ORDERED: ACETAMINOPHEN 650 MG SUPP RECTAL PRN (17:00)
[2016-12-12] MEDS ORDERED: CLEVIDIPINE INJ 50 ML IV SCH (17:00)
[2016-12-12] MEDS ORDERED: hydrALAZINE HCL 20 MG/ML VIAL IV PRN (17:00)
[2016-12-12] MEDS ORDERED: SODIUM CHLORIDE 0.9% FLUSH 5 ML FLUSH IV FLUSH PRN (17:00)
[2016-12-12] MEDS ORDERED: ONDANSETRON HCL 4 MG/2 ML VIAL IV PUSH PRN (17:00)
[2016-12-12] MEDS ORDERED: METOPROLOL TARTRATE 5 MG/5 ML VIAL IV PUSH PRN (17:00)
[2016-12-12] MEDS ORDERED: MAGNESIUM SULFATE INJ 2 GM in SODIUM CHLORIDE 0.9% INJ 100 ML IV PRN ×4 (17:00)
[2016-12-12] MEDS ORDERED: CALCIUM CHLORIDE INJ 1 GM in SODIUM CHLORIDE 0.9% INJ 100 ML IV PRN (17:00)
[2016-12-12] MEDS ORDERED: INSULIN REGULAR (IV INFUSION) 100 UNITS in SODIUM CHLORIDE 0.9% INJ 99 ML IV SCH (17:00)
[2016-12-12] MEDS ORDERED: ACETAMINOPHEN 325 MG TAB PO PRN (17:00)
[2016-12-12] MEDS ORDERED: POTASSIUM CHLOR 20 MEQ PREMIX 100 ML IV PRN ×3 (17:00)
[2016-12-12] MEDS ORDERED: POTASSIUM CHLORIDE 20 MEQ CONTROLLED RELEASE TAB PO PRN ×2 (17:00)
[2016-12-12] MEDS ORDERED: DEXTROSE 50% IN WATER 50 ML VIAL(D50) IV PUSH PRN (17:00)
[2016-12-12] MEDS ORDERED: CALCIUM CHLORIDE 10% 1 GRAM/10 ML VIAL IV PRN (17:00)
[2016-12-12] MEDS ORDERED: Post-op Orders (for Pharmacy) MISC OTHER ONE (17:00)
[2016-12-12] MEDS ORDERED: MIDAZOLAM HCL 5 MG/5 ML VIAL ONE (17:29)
[2016-12-12] MEDS ORDERED: fentaNYL CITRATE 1000 MCG/20 ML VIAL ONE (17:29)
[2016-12-12] MEDS ORDERED: RESP: ALBUTEROL 2.5 MG/IPRATROPIUM 0.5 MG NEB (PRN) NEB (18:00)
[2016-12-12] MEDS ORDERED: RESP: RACEPINEPHRINE 2.25% 0.5 ML NEB NEB PRN (18:00)
[2016-12-12] MEDS: ACETAMINOPHEN 1000 MG/100 ML VIAL IV SCH (18:03)
--- NOTE | 2016-12-12 18:11 | RADRPT ---
EXAM DATE/TIME: 12/12/2016 17:55 [facility] COMPARISON: CHEST SINGLE AP, December 11, 2016, 15:24. INDICATIONS : Post CABG. MEDICAL HISTORY : None. SURGICAL HISTORY : None. ENCOUNTER: Initial ACUITY: 1 day PAIN SCORE: Non-responsive. LOCATION: Bilateral chest FINDINGS: A single portable frontal view of the chest shows interval median sternotomy. Endotracheal tube tip i s 4 cm proximal to the tamra. Tip of the internal jugular vein central venous line on the right is o bscured by the spine but felt to be at the mid right atrial level. 2 thoracostomy tubes overlie the l eft hemithorax. Nasogastric tube is coiled in the fundus of the stomach. No pneumothoraces. Low lung volumes. No infiltrates or effusions. Heart is normal in size. CONCLUSION: Interval median sternotomy with life-support lines. No pneumothorax. Rahul Menendez Jr., MD on December 12, 2016 at 18:08 Board Certified Radiologist. This report was verified electronically.
[2016-12-12] MEDS: SODIUM CHLORIDE 0.9% FLUSH 5 ML FLUSH IV FLUSH SCH (21:00)
[2016-12-12] MEDS: ATORVASTATIN 40 MG TAB PO SCH (21:27)
[2016-12-12] MEDS: AMIODARONE 200 MG TAB PO SCH (21:27)
[2016-12-12] MEDS: ceFAZolin 2 GM PREMIX 50 ML IV SCH (21:28)
[2016-12-12] MEDS: oxyCODONE/ACETAMINOPHEN 5 MG/325 MG TAB PO PRN (22:35)
[2016-12-12] MEDS: RESP: ALBUTEROL 2.5 MG/IPRATROPIUM 0.5 MG NEB (SCH) NEB (23:05)
[2016-12-13] VITALS (20 sets, daily range): BP systolic 104–147; BP diastolic 62–86; PULSE 83–106; RESP 16–21; TEMP 98.6–99.4; O2SAT 92–96
[2016-12-13] MEDS: ACETAMINOPHEN 1000 MG/100 ML VIAL IV SCH ×3 (00:12→10:17)
[2016-12-13] MEDS: RESP: ALBUTEROL 2.5 MG/IPRATROPIUM 0.5 MG NEB (SCH) NEB ×4 (03:44→20:35)
[2016-12-13] MEDS: ceFAZolin 2 GM PREMIX 50 ML IV SCH ×3 (05:04→20:44)
[2016-12-13] MEDS: AMIODARONE 200 MG TAB PO SCH ×3 (05:05→20:45)
--- NOTE | 2016-12-13 05:24 | RADRPT ---
EXAM DATE/TIME: 12/13/2016 04:26 [facility] COMPARISON: CHEST SINGLE AP, December 12, 2016, 17:55. INDICATIONS : Status post CABG. MEDICAL HISTORY : Hypertension. Gastroesophageal reflux disease. Diabetes mellitus type II. Hyperlipidemia SURGICAL HISTORY : Coronary artery stent. ENCOUNTER: Subsequent ACUITY: 3 days PAIN SCORE: Non-responsive. LOCATION: Bilateral chest FINDINGS: The endotracheal tube has been removed. The chest tubes remain in place. Right-sided central line rem ains in place. No evidence of pneumothorax. Mild atelectasis in the left lung base. Right lung is antolin ar. Heart size is stable. CONCLUSION: Mild left lower lung atelectasis. Aguila Dennis MD on December 13, 2016 at 5:22 Board Certified Radiologist. This report was verified electronically.
[2016-12-13 05:32] LABS: HEMATOCRIT 38.9 % (39.0-51.0); MEAN CELL VOLUME 83.5 FL (80.0-100.0); MEAN CORPUSCULAR HEMOGLOBIN 28.1 PG (27.0-34.0); MEAN CORPUSCULAR HGB CONC 33.6 % (32.0-36.0); PLATELET COUNT 153 TH/MM3 (150-450); RED BLOOD COUNT 4.66 MIL/MM3 (4.50-5.90); RED CELL DISTRIBUTION WIDTH 13.6 % (11.6-17.2); REVIEW FLAG FINAL; WHITE BLOOD COUNT 17.9 TH/MM3 (4.0-11.0)
[2016-12-13 05:59] LABS: BICARBONATE 21.1 MEQ/L (21.0-32.0); MAGNESIUM 2.4 MG/DL (1.5-2.5); POTASSIUM 4.8 MEQ/L (3.5-5.1)
[2016-12-13] MEDS ORDERED: PANTOPRAZOLE SOD 40 MG DELAYED RELEASE TAB PO SCH (06:00)
--- NOTE | 2016-12-13 07:21 | PD.CARD.PN ---
Subjective Subjective Remarks denies any angina Objective Vital Signs / I&O Vital Signs Date Time Temp Pulse Resp B/P Pulse Ox O2 Delivery O2 Flow Rate FiO2 12/13/16 06:39 20 12/13/16 06:39 20 12/13/16 04:00 90 12/13/16 04:00 98.8 90 20 94 114/62 12/13/16 00:00 99.2 83 20 93 117/62 12/12/16 23:50 95 12/12/16 23:45 99.0 12/12/16 23:40 20 12/12/16 23:11 95 Nasal Cannula 6.00 12/12/16 20:00 98.4 83 16 109/62 92 103/56 12/12/16 19:45 94 Nasal Cannula 5 12/12/16 19:45 94 Nasal Cannula 5.00 12/12/16 19:25 99.2 12/12/16 19:15 75 12/12/16 18:20 95 50 12/12/16 18:10 98.9 12/12/16 18:00 84 12/12/16 17:52 93 100 12/12/16 17:30 99.4 12/12/16 17:15 73 12/12/16 17:15 99.4 73 10 113/56 94 119/57 12/12/16 17:15 70 12/12/16 12:00 68 12/12/16 11:00 99.0 67 20 137/84 97 12/12/16 11:00 69 12/12/16 10:00 70 12/12/16 09:00 71 I/O 12/12/16 12/12/16 12/12/16 12/13/16 12/13/16 12/13/16 07:00 15:00 23:00 07:00 15:00 23:00 Intake Total 240 ml 1100 ml 2053 ml Output Total 300 ml 310 ml 1175 ml Balance -60 ml 790 ml 878 ml Intake Oral 240 ml 480 ml IV Total 1100 ml 1573 ml Output Urine Total 300 ml 215 ml 865 ml Gastric Drainage Total 25 ml Chest Tube Drainage Total 70 ml 310 ml # Voids 3 # Bowel Movements 1 0 0 Physical Exam GENERAL: Well-nourished, well-developed patient in no apparent distress. NECK: No JVD. No carotid bruit. CARDIOVASCULAR: tachycardia, regular rhythm. S1/S2 no murmur, rub, or gallop. RESPIRATORY: No accessory muscle use. Clear to auscultation. Breath sounds equal bilaterally. GASTROINTESTINAL: Abdomen soft, non-tender, nondistended. MUSCULOSKELETAL: Extremities without clubbing, cyanosis, or edema. Laboratory Laboratory Tests Test 12/13/16 05:10 White Blood Count 17.9 TH/MM3 Red Blood Count 4.66 MIL/MM3 Hemoglobin 13.1 GM/DL Hematocrit 38.9 % Mean Corpuscular Volume 83.5 FL Mean Corpuscular Hemoglobin 28.1 PG Mean Corpuscular Hemoglobin 33.6 % Concent Red Cell Distribution Width 13.6 % Platelet Count 153 TH/MM3 Mean Platelet Volume 8.9 FL Sodium Level 143 MEQ/L Potassium Level 4.8 MEQ/L Chloride Level 110 MEQ/L Carbon Dioxide Level 21.1 MEQ/L Anion Gap 12 MEQ/L Blood Urea Nitrogen 11 MG/DL Creatinine 0.91 MG/DL Estimat Glomerular Filtration 89 ML/MIN Rate Random Glucose 137 MG/DL Calcium Level 8.0 MG/DL Magnesium Level 2.4 MG/DL Assessment and Plan Problem List: (1) Coronary artery disease (2) Diabetes mellitus (3) Hyperlipemia (4) Tobacco abuse (5) Hypertension Assessment and Plan CAD s/p CABG x 3 vessels doing well, continue present medical regimen, sign off. He will f/u in the outpatient setting Rajan Nicole Dec 13, 2016 07:21
--- NOTE | 2016-12-13 08:11 | EKG ---
Date Performed: 12/13/2016 Time Performed: 04:26:16 PTAGE: 46 years EKG: Sinus rhythm rSr'(V1) - probable normal variant Poor R wave progression - probable normal variant Low QRS voltage s in precordial leads Borderline ECG NO SIGNIFICANT CHANGE FROM PRIOR ELECTROCARDIOGRAM. PREVIOUS TRACING : 12/11/2016 10.55 DOCTOR: Vasu Escalante Interpretating Date/Time 12/13/2016 08:09:41
[2016-12-13] MEDS: oxyCODONE/ACETAMINOPHEN 5 MG/325 MG TAB PO PRN ×2 (08:39→16:28)
[2016-12-13] MEDS: SODIUM CHLORIDE 0.9% FLUSH 5 ML FLUSH FLUSH SCH (08:39)
[2016-12-13] MEDS: PANTOPRAZOLE SOD 40 MG DELAYED RELEASE TAB PO SCH (08:39)
[2016-12-13] MEDS: DOCUSATE SODIUM 100 MG CAP PO SCH ×2 (08:39→20:45)
[2016-12-13] MEDS: SODIUM CHLORIDE 0.9% FLUSH 5 ML FLUSH IV FLUSH SCH ×2 (08:40→20:45)
[2016-12-13] MEDS ORDERED: BISACODYL 10 MG SUPP RECTAL PRN (09:15)
[2016-12-13] MEDS ORDERED: GLUCAGON 1 MG/ML VIAL OTHER PRN (09:15)
[2016-12-13] MEDS ORDERED: DEXTROSE 50% IN WATER 50 ML VIAL(D50) IV PRN (09:15)
[2016-12-13] MEDS ORDERED: SOD PHOSPHATE/SOD BIPHOSPHATE (ADULT) ENEMA 133ML RECTAL PRN (09:15)
[2016-12-13] MEDS: INSULIN ASPART SUPPLEMENTAL SCALE SQ SCH ×4 (10:00→21:59)
[2016-12-13] MEDS ORDERED: FUROSEMIDE 40 MG/4 ML VIAL IV PUSH ONE (10:00)
[2016-12-13] MEDS ORDERED: INSULIN DETEMIR 100 UNITS/ML VIAL SQ ONE (10:00)
[2016-12-13] MEDS: ATENOLOL 25 MG TAB PO SCH ×2 (10:19→21:00)
[2016-12-13] MEDS: ASPIRIN EC 81 MG TABEC PO SCH (10:19)
[2016-12-13] MEDS: KETOROLAC TROMETHAMINE 30 MG/ML (IVP) VIAL IV PUSH PRN ×2 (10:19→20:57)
--- NOTE | 2016-12-13 11:43 | PD.CAR.PN ---
CVT Progress Note CVT: POD #: 1 Subjective/Hospital Course: 46/ male c/o of chest pressure off and on x 10 months, worsening with and without exertion past couple of months, underwent stress test , which showed depression in inferior lateral leads.. Then underwent heart cath per Dr Stevenson multi vessel disease EF 45 % / eval for Coronary artery Bypass grafting PMH: HTN, HLP, obesity, tobacco abuse, DM, dyspepsia, GERD 12/12 surgery :CABG x 3, BLOUNT to LAD - fair, SVG to OM1 - good, SVG to PDA - poor, L EVH CPB 84 min, cellsaver 850, crystalloid 2500, urine 400cc extubated after surgery 12/13 doing well, up in chair, on nasal cannula weaning off insulin gtt, start levemir gentle diuresis transfer to stepdown Objective: GENERAL: SKIN: Warm and dry./ prevena to chest , barby wrap to left leg HEAD: Normocephalic. EYES: No scleral icterus. No injection or drainage. NECK: Supple, trachea midline. No JVD or lymphadenopathy. CARDIOVASCULAR: Regular rate and rhythm without murmurs, gallops, + rubs. RESPIRATORY: Breath sounds equal bilaterally. No accessory muscle use. diminished in bases , chest tube to wall suction , no air leak, drained 310cc/ 12 hrs GASTROINTESTINAL: Abdomen soft, non-tender, nondistended. MUSCULOSKELETAL: No cyanosis, or edema. BACK: Nontender without obvious deformity. No CVA tenderness. Vital Signs Date Time Temp Pulse Resp B/P Pulse Ox O2 Delivery O2 Flow Rate FiO2 12/13/16 09:36 20 12/13/16 09:36 20 12/13/16 07:22 93 Nasal Cannula 4.00 12/13/16 07:00 98.7 106 20 135/72 94 104/75 12/13/16 07:00 105 12/13/16 06:39 20 12/13/16 04:00 90 12/13/16 04:00 98.8 90 20 94 114/62 12/13/16 00:00 99.2 83 20 93 117/62 12/12/16 23:50 95 12/12/16 23:45 99.0 12/12/16 23:11 95 Nasal Cannula 6.00 12/12/16 20:00 98.4 83 16 109/62 92 103/56 12/12/16 19:45 94 Nasal Cannula 5 12/12/16 19:45 94 Nasal Cannula 5.00 12/12/16 19:25 99.2 12/12/16 19:15 75 12/12/16 18:20 95 50 12/12/16 18:10 98.9 12/12/16 18:00 84 12/12/16 17:52 93 100 12/12/16 17:30 99.4 12/12/16 17:15 73 12/12/16 17:15 99.4 73 10 113/56 94 119/57 12/12/16 17:15 70 12/12/16 12:00 68 Labs: Laboratory Tests Test 12/13/16 05:10 White Blood Count 17.9 TH/MM3 (4.0-11.0) Red Blood Count 4.66 MIL/MM3 (4.50-5.90) Hemoglobin 13.1 GM/DL (13.0-17.0) Hematocrit 38.9 % (39.0-51.0) Mean Corpuscular Volume 83.5 FL (80.0-100.0) Mean Corpuscular Hemoglobin 28.1 PG (27.0-34.0) Mean Corpuscular Hemoglobin 33.6 % Concent (32.0-36.0) Red Cell Distribution Width 13.6 % (11.6-17.2) Platelet Count 153 TH/MM3 (150-450) Mean Platelet Volume 8.9 FL (7.0-11.0) Sodium Level 143 MEQ/L (136-145) Potassium Level 4.8 MEQ/L (3.5-5.1) Chloride Level 110 MEQ/L (98-107) Carbon Dioxide Level 21.1 MEQ/L (21.0-32.0) Anion Gap 12 MEQ/L (5-15) Blood Urea Nitrogen 11 MG/DL (7-18) Creatinine 0.91 MG/DL (0.60-1.30) Estimat Glomerular Filtration 89 ML/MIN (>89) Rate Random Glucose 137 MG/DL (74-106) Calcium Level 8.0 MG/DL (8.5-10.1) Magnesium Level 2.4 MG/DL (1.5-2.5) Result Diagram: 12/13/1610 1/25/17 0510 Telemetry: NSR (1) Coronary artery disease (2) S/P CABG x 3 Plan: ASA, statin , BB amiodarone gentle diuresis aggressive pulm toileting nebs, ezpap acapella ambulate transfer to stepdown unit (3) Diabetes mellitus Plan: HGB aic 6.8, 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
[2016-12-13] MEDS: ONDANSETRON HCL 4 MG/2 ML VIAL IVP PRN (18:12)
[2016-12-13] MEDS: ATORVASTATIN 40 MG TAB PO SCH (20:45)
[2016-12-13] MEDS: INSULIN DETEMIR 100 UNITS/ML VIAL SQ SCH (20:46)
[2016-12-13] MEDS: SENNOSIDES 8.6 MG TAB PO SCH (21:00)
[2016-12-14] VITALS (32 sets, daily range): BP systolic 108–118; BP diastolic 57–66; PULSE 75–97; RESP 14–22; TEMP 98.3–99.3; O2SAT 93–98
[2016-12-14] MEDS: ONDANSETRON HCL 4 MG/2 ML VIAL IVP PRN ×3 (01:04→23:52)
[2016-12-14] MEDS: oxyCODONE/ACETAMINOPHEN 5 MG/325 MG TAB PO PRN ×4 (01:04→23:52)
[2016-12-14] MEDS: INSULIN ASPART SUPPLEMENTAL SCALE SQ SCH ×5 (03:46→23:20)
[2016-12-14 04:21] LABS: BASOPHIL % 0.1 % (0.0-2.0); EOSINOPHIL % 0.2 % (0.0-4.0); HEMATOCRIT 34.8 % (39.0-51.0); HEMO FLAGS DIFF FINAL; LYMPH % 11.6 % (9.0-44.0); LYMPHOCYTE # 1.6 TH/MM3 (1.0-4.8); MEAN CELL VOLUME 84.5 FL (80.0-100.0); MEAN CORPUSCULAR HEMOGLOBIN 27.8 PG (27.0-34.0); MEAN CORPUSCULAR HGB CONC 32.9 % (32.0-36.0); MONO % 7.8 % (0.0-8.0); NEUT % 80.3 % (16.0-70.0); PLATELET COUNT 153 TH/MM3 (150-450); RED BLOOD COUNT 4.12 MIL/MM3 (4.50-5.90); WHITE BLOOD COUNT 13.7 TH/MM3 (4.0-11.0)
[2016-12-14 04:44] LABS: BICARBONATE 26.5 MEQ/L (21.0-32.0); MAGNESIUM 2.1 MG/DL (1.5-2.5); POTASSIUM 4.4 MEQ/L (3.5-5.1)
[2016-12-14] MEDS: ceFAZolin 2 GM PREMIX 50 ML IV SCH (05:32)
[2016-12-14] MEDS: AMIODARONE 200 MG TAB PO SCH ×3 (05:32→20:58)
[2016-12-14] MEDS: KETOROLAC TROMETHAMINE 30 MG/ML (IVP) VIAL IV PUSH PRN ×2 (06:21→15:44)
[2016-12-14] MEDS: RESP: ALBUTEROL 2.5 MG/IPRATROPIUM 0.5 MG NEB (SCH) NEB ×3 (07:49→20:24)
[2016-12-14] MEDS: POLYETHYLENE GLYCOL 17 GM PKG PO SCH (08:44)
[2016-12-14] MEDS: MAGNESIUM HYDROXIDE SUSP 30 ML CUP PO SCH (08:44)
[2016-12-14] MEDS: MULTIVITAMINS/MINERALS THERAPEUTIC TAB PO SCH (08:45)
[2016-12-14] MEDS: INSULIN DETEMIR 100 UNITS/ML VIAL SQ SCH ×2 (08:45→20:58)
[2016-12-14] MEDS: DOCUSATE SODIUM 100 MG CAP PO SCH ×2 (08:45→20:58)
[2016-12-14] MEDS: ATENOLOL 25 MG TAB PO SCH ×2 (08:46→23:49)
[2016-12-14] MEDS: PANTOPRAZOLE SOD 40 MG DELAYED RELEASE TAB PO SCH (08:46)
[2016-12-14] MEDS: SODIUM CHLORIDE 0.9% FLUSH 5 ML FLUSH IV FLUSH SCH ×2 (08:47→20:59)
[2016-12-14] MEDS: ASPIRIN EC 81 MG TABEC PO SCH (08:49)
--- NOTE | 2016-12-14 11:59 | PD.CAR.PN ---
CVT Progress Note CVT: POD #: 2 Subjective/Hospital Course: 46/ male c/o of chest pressure off and on x 10 months, worsening with and without exertion past couple of months, underwent stress test , which showed depression in inferior lateral leads.. Then underwent heart cath per Dr Stevenson multi vessel disease EF 45 % / eval for Coronary artery Bypass grafting PMH: HTN, HLP, obesity, tobacco abuse, DM, dyspepsia, GERD 12/12 surgery :CABG x 3, BLOUNT to LAD - fair, SVG to OM1 - good, SVG to PDA - poor, L EVH CPB 84 min, cellsaver 850, crystalloid 2500, urine 400cc extubated after surgery 12/13 doing well, up in chair, on nasal cannula weaning off insulin gtt, start levemir gentle diuresis transfer to stepdown 12/14 add home metformin, will need BGM machine and test strips for home add additional diuresis BP stable, remains in NSR on room air Objective: GENERAL: SKIN: Warm and dry./ prevena to chest, incision intact to lower leg HEAD: Normocephalic. EYES: No scleral icterus. No injection or drainage. NECK: Supple, trachea midline. No JVD or lymphadenopathy. CARDIOVASCULAR: Regular rate and rhythm without murmurs, gallops, or rubs. RESPIRATORY: Breath sounds equal bilaterally. No accessory muscle use. chest tube no air leak / CT 50cc/ 12hr GASTROINTESTINAL: Abdomen soft, non-tender, nondistended. MUSCULOSKELETAL: No cyanosis, or edema. BACK: Nontender without obvious deformity. No CVA tenderness. Vital Signs Date Time Temp Pulse Resp B/P Pulse Ox O2 Delivery O2 Flow Rate FiO2 12/14/16 11:19 75 12/14/16 11:18 98.5 79 16 108/62 94 12/14/16 10:36 75 12/14/16 09:33 85 12/14/16 08:10 85 12/14/16 07:52 98 Nasal Cannula 2.00 12/14/16 07:34 98.5 81 16 114/59 96 12/14/16 07:00 81 12/14/16 06:01 86 12/14/16 05:00 83 12/14/16 04:01 84 12/14/16 03:15 99.3 83 18 114/66 96 12/14/16 03:00 82 12/14/16 02:14 20 12/14/16 02:01 89 12/14/16 01:01 87 12/14/16 00:00 92 12/13/16 23:15 99.1 92 21 127/74 93 12/13/16 23:01 92 12/13/16 22:00 91 12/13/16 22:00 18 12/13/16 22:00 18 12/13/16 21:00 92 12/13/16 20:40 Nasal Cannula 2.00 12/13/16 20:15 99.4 92 20 147/86 94 Arterial Line 12/13/16 20:00 91 12/13/16 19:00 90 12/13/16 18:06 89 12/13/16 17:17 88 12/13/16 16:14 87 12/13/16 15:35 98.6 92 16 118/68 96 12/13/16 15:05 92 12/13/16 14:10 92 12/13/16 13:00 91 12/13/16 12:00 93 Labs: Laboratory Tests Test 12/14/16 03:30 White Blood Count 13.7 TH/MM3 (4.0-11.0) Red Blood Count 4.12 MIL/MM3 (4.50-5.90) Hemoglobin 11.4 GM/DL (13.0-17.0) Hematocrit 34.8 % (39.0-51.0) Mean Corpuscular Volume 84.5 FL (80.0-100.0) Mean Corpuscular Hemoglobin 27.8 PG (27.0-34.0) Mean Corpuscular Hemoglobin 32.9 % Concent (32.0-36.0) Red Cell Distribution Width 14.0 % (11.6-17.2) Platelet Count 153 TH/MM3 (150-450) Mean Platelet Volume 9.0 FL (7.0-11.0) Neutrophils (%) (Auto) 80.3 % (16.0-70.0) Lymphocytes (%) (Auto) 11.6 % (9.0-44.0) Monocytes (%) (Auto) 7.8 % (0.0-8.0) Eosinophils (%) (Auto) 0.2 % (0.0-4.0) Basophils (%) (Auto) 0.1 % (0.0-2.0) Neutrophils # (Auto) 11.0 TH/MM3 (1.8-7.7) Lymphocytes # (Auto) 1.6 TH/MM3 (1.0-4.8) Monocytes # (Auto) 1.1 TH/MM3 (0-0.9) Eosinophils # (Auto) 0.0 TH/MM3 (0-0.4) Basophils # (Auto) 0.0 TH/MM3 (0-0.2) CBC Comment DIFF FINAL Differential Comment Sodium Level 139 MEQ/L (136-145) Potassium Level 4.4 MEQ/L (3.5-5.1) Chloride Level 107 MEQ/L (98-107) Carbon Dioxide Level 26.5 MEQ/L (21.0-32.0) Anion Gap 6 MEQ/L (5-15) Blood Urea Nitrogen 16 MG/DL (7-18) Creatinine 1.09 MG/DL (0.60-1.30) Estimat Glomerular Filtration 73 ML/MIN (>89) Rate Random Glucose 125 MG/DL (74-106) Calcium Level 8.2 MG/DL (8.5-10.1) Magnesium Level 2.1 MG/DL (1.5-2.5) Result Diagram: 12/14/1632912/14/16 033 Telemetry: NSR (1) Coronary artery disease (2) S/P CABG x 3 Plan: ASA, statin , BB amiodarone gentle diuresis aggressive pulm toileting nebs, ezpap acapella ambulate (3) Diabetes mellitus Plan: HGB aic 6.8, peer educator consult needs BGM machine at home levemir start po meds metformin (4) Hyperlipemia Plan: on statin (5) Tobacco abuse Plan: smoking cessation (6) Hypertension Plan: on BB Usha Flynn Dec 14, 2016 11:58
[2016-12-14] MEDS ORDERED: FUROSEMIDE 40 MG/4 ML VIAL IV PUSH ONE (12:00)
[2016-12-14] MEDS ORDERED: POTASSIUM CHLORIDE 20 MEQ CONTROLLED RELEASE TAB PO ONE (12:00)
--- NOTE | 2016-12-14 12:27 | HHI.FF ---
Face to Face Verification Diagnosis: (1) Coronary artery disease (2) Diabetes mellitus (3) Hyperlipemia (4) Tobacco abuse (5) Hypertension (6) S/P CABG x 3 Home Health Nursing Order: Signs/symptoms of disease process Diabetic education Wound care and dressing changes Instructions: Heart and Vascular Surgery patients *Special attention to sternal dressing Mandatory frequency Assess and evaluation, 4 days in a row The next week 3X week 2 times a week for 4 weeks 1 time a week for 5 weeks Schedule Heart and Vascular patients for full 60 day certification period Initial visit Review Open Heart Surgery Discharge Instructions (Sternal precautions, Activity, Elastic hose, Incision care, Driving, Incentive spirometry, Smoking, [place], Work and other) Need Betadine to paint incision Medication reconciliation Importance of follow up care/ check on appointments Make calendar record temperature daily When to call [facility] nurse, review instructions, phone list Incentive Spirometry, demonstration Visit 1- Begin discharge instruction for patient family and/ or caregiver using teach back method- Signs and symptoms of infection Disease characteristics Medicines and side effects Foods and nutrition/ appetite Infection control/ hand washing/ hygiene Visit 2- Continue teaching Discharge instructions- include additional information on smoking cessation , sternal dressing (sternal vac) Visit 3- Continue teaching- Cough and deep breathing, incision monitoring. Choose my plate Visit 4- Continue teaching- Discuss limitations Discuss how they are feeling Discuss progress toward goals PREVENA Single Use Negative Wound Therapy System Caregiver Instruction Sheet 1. A Prevena dressing system was applied to the chest incision during surgery , to promote wound healing. It works via a suction device (negative pressure wound therapy) to remove low to moderate levels of exudate (drainage) and infectious materials. We recommend that the device stay in place for up to seven days, from day of surgery. 2. Day of Surgery____12/12/16 Day of Removal 12/19/16 3. The dressing should only be removed by a health regular senior care provider. Please arrange removal of device to coincide with Home Health visit and or with Nursing staff at Rehab 4. If skin reddening or irritation of skin occurs, or excessive drainage, please notify the Cardiovascular Surgeons office at [phone]. 5. Light showering is permissible; however the pump should be disconnected and placed in safe location, where it will not get wet. The dressing should not be exposed to direct spray or submerged in water. No bath tub / shower only. Ensure the end of the tubing attached to the dressing is facing down so that water does not enter the top of the tube. 6. To remove Prevena dressing: press purple button to turn off device / remove the suction. Then disconnect the tubing from the pump. The fixation strips should be stretched away from the skin and the dressing lifted at one corner and peeled back until it has been fully removed. 7. After removal, it is ok to shower daily using liquid dial soap and clean wash cloth, rinse and pat dry, and leave incision open to air dry. For any concerns regarding Prevena dressing, and or wounds, please contact Pat Negrete, patient navigator at [phone] or notify the Cardiovascular Surgeons office at [phone]. Incentive spirometry Q1 hr x 10, while awake, also use acapella device hourly whole awake Sternal Breast Bone Precautions: NO pushing or pulling, ( pt must use sternal pillow to support chest with all activities and with coughing ( takes up to 3 months breast bone to heal ) All females to wear sternal bra , launder as needed Daily incision care: ok to shower daily, no tub bath. Wash all incisions with liquid dial soap, clean wash cloth to each site, rinse and pat dry. Observe for any signs of infection, such as drainage which is dark yellow, gruber, green or foul smelling. Immediately report to the surgeon any drainage from the chest incision, or legs, and for any abnormal drainage from the chest tube sites. Notify surgeon if any temp >101.5 degrees F. When specialty dressing removed/ or if you do not have one, continue to shower daily as above, then rinse and pat incision dry and paint with betadine daily x 5 days. Allow steri strips to fall off if you have any. Avoid lotions, creams, salves, oils, etc. for the first month Please see attached forms for additional instructions regarding post Open Heart specialty wound vacuum dressings. LAURIE or Prevena , Dressing to be removed by Nursing staff on 12/19/16__ For Dr. Fisher patients , please obtain CBC, BMP, PA & Lat CXR in 2 weeks, results to Dr. Fisher ( prescription will be given) ( ) (Tele: [phone]) , F/U appointment: as per DC instructions: PCP in 2 weeks, CV surgeon 4 weeks, Pipe Insulator Helper 3-4 weeks For any questions regarding incisions/ dressing / meds / post op care or above Symptoms, Sunday 8am-5pm Heart & Vascular Surgery Office ( Dr. Cassidy & Dr. Fisher), After Hours / Nights (5pm -8am) Weekends and Holidays Please call [facility] ([facility]) Charge Nurse I have seen patient Honorio Roland on 12/14/16. My clinical findings support the need for the requested home health care services because: Deconditioned w/ increased weakness I certify that my clinical findings support that this patient is homebound because: Post-op weakness (blood sugar monitoring) Usha Flynn Dec 14, 2016 12:27
[2016-12-14] MEDS: metFORMIN HCL 500 MG TAB PO SCH ×2 (14:28→20:58)
[2016-12-14] MEDS: ATORVASTATIN 40 MG TAB PO SCH (20:57)
[2016-12-14] MEDS: SENNOSIDES 8.6 MG TAB PO SCH (20:58)
[2016-12-15] VITALS (30 sets, daily range): BP systolic 107–129; BP diastolic 62–73; PULSE 75–86; RESP 17–22; TEMP 97.8–100.1; O2SAT 90–97
--- NOTE | 2016-12-15 05:04 | RADRPT ---
EXAM DATE/TIME: 12/15/2016 04:23 [facility] COMPARISON: CHEST SINGLE AP, December 13, 2016, 4:26. INDICATIONS : Status post chest tube removal. MEDICAL HISTORY : Hypertension. Gastroesophageal reflux disease. Diabetes mellitus type II. Hyperlipidemia. SURGICAL HISTORY : Coronary artery stent. ENCOUNTER: Subsequent ACUITY: 4 - 6 days PAIN SCORE: Non-responsive. LOCATION: chest FINDINGS: Cardiomegaly, left basilar bandlike atelectatic change at site of previous chest tube and mild left l ower lobe airspace disease. Right lung is clear. Sternotomy wires are present. I do not see a pneumot horax. CONCLUSION: No obvious pneumothorax status post chest tube removal. Samuel Mccoy MD on December 15, 2016 at 5:02 Board Certified Radiologist. This report was verified electronically.
[2016-12-15] MEDS: AMIODARONE 200 MG TAB PO SCH ×2 (06:01→13:31)
[2016-12-15] MEDS: oxyCODONE/ACETAMINOPHEN 5 MG/325 MG TAB PO PRN ×3 (07:36→19:07)
[2016-12-15] MEDS: ONDANSETRON HCL 4 MG/2 ML VIAL IVP PRN ×3 (07:37→19:07)
[2016-12-15] MEDS: RESP: ALBUTEROL 2.5 MG/IPRATROPIUM 0.5 MG NEB (SCH) NEB (08:33)
[2016-12-15] MEDS: ATENOLOL 25 MG TAB PO SCH ×2 (09:28→20:43)
[2016-12-15] MEDS: ASPIRIN EC 81 MG TABEC PO SCH (09:28)
[2016-12-15] MEDS: MULTIVITAMINS/MINERALS THERAPEUTIC TAB PO SCH (09:28)
[2016-12-15] MEDS: PANTOPRAZOLE SOD 40 MG DELAYED RELEASE TAB PO SCH (09:29)
[2016-12-15] MEDS: DOCUSATE SODIUM 100 MG CAP PO SCH ×2 (09:29→20:43)
[2016-12-15] MEDS: INSULIN DETEMIR 100 UNITS/ML VIAL SQ SCH ×2 (09:29→20:44)
[2016-12-15] MEDS: metFORMIN HCL 500 MG TAB PO SCH ×3 (09:29→18:30)
[2016-12-15] MEDS: SODIUM CHLORIDE 0.9% FLUSH 5 ML FLUSH IV FLUSH SCH ×2 (09:29→20:44)
[2016-12-15] MEDS: POLYETHYLENE GLYCOL 17 GM PKG PO SCH (09:30)
[2016-12-15] MEDS: MAGNESIUM HYDROXIDE SUSP 30 ML CUP PO SCH (09:30)
[2016-12-15] MEDS: INSULIN ASPART SUPPLEMENTAL SCALE SQ SCH ×3 (11:00→20:59)
--- NOTE | 2016-12-15 11:15 | PD.CAR.PN ---
CVT Progress Note Subjective/Hospital Course: 46/ male c/o of chest pressure off and on x 10 months, worsening with and without exertion past couple of months, underwent stress test , which showed depression in inferior lateral leads.. Then underwent heart cath per Dr Stevenson multi vessel disease EF 45 % / eval for Coronary artery Bypass grafting PMH: HTN, HLP, obesity, tobacco abuse, DM, dyspepsia, GERD 12/12 surgery :CABG x 3, BLOUNT to LAD - fair, SVG to OM1 - good, SVG to PDA - poor, L EVH CPB 84 min, cellsaver 850, crystalloid 2500, urine 400cc extubated after surgery 12/13 doing well, up in chair, on nasal cannula weaning off insulin gtt, start levemir gentle diuresis transfer to stepdown 12/14 add home metformin, will need BGM machine and test strips for home add additional diuresis BP stable, remains in NSR on room air 12/15 blood sugars improving c/o burning sensation upper right thigh on room air, in NSR plan for dc in am Objective: GENERAL: SKIN: Warm and dry./ prevena dressing to chest HEAD: Normocephalic. EYES: No scleral icterus. No injection or drainage. NECK: Supple, trachea midline. No JVD or lymphadenopathy. CARDIOVASCULAR: Regular rate and rhythm without murmurs, gallops, or rubs. RESPIRATORY: diminished in bases Breath sounds equal bilaterally. No accessory muscle use. GASTROINTESTINAL: Abdomen soft, non-tender, nondistended. MUSCULOSKELETAL: No cyanosis, or edema. BACK: Nontender without obvious deformity. No CVA tenderness. Vital Signs Date Time Temp Pulse Resp B/P Pulse Ox O2 Delivery O2 Flow Rate FiO2 12/15/16 09:30 15 12/15/16 08:33 90 21 12/15/16 07:00 77 12/15/16 07:00 97.8 79 20 107/62 96 12/15/16 06:01 78 12/15/16 05:00 79 12/15/16 04:01 77 12/15/16 03:30 97.9 78 22 109/63 97 12/15/16 03:00 78 12/15/16 02:01 80 12/15/16 01:00 81 12/15/16 00:01 86 12/14/16 23:15 98.3 87 22 109/57 97 12/14/16 23:00 86 12/14/16 22:00 86 12/14/16 21:00 92 12/14/16 20:30 99.2 90 14 109/63 93 12/14/16 20:25 94 Nasal Cannula 2.00 12/14/16 20:00 94 12/14/16 19:00 85 12/14/16 18:06 97 12/14/16 17:00 91 12/14/16 16:00 88 12/14/16 15:44 98.4 89 18 118/62 93 12/14/16 15:00 96 12/14/16 14:00 87 12/14/16 13:00 80 12/14/16 12:18 79 12/14/16 11:19 75 12/14/16 11:18 98.5 79 16 108/62 94 Result Diagram: 12/14/16 0330 12/14/16 0330 Telemetry: NSR (1) Coronary artery disease (2) S/P CABG x 3 Plan: ASA, statin , BB amiodarone gentle diuresis aggressive pulm toileting nebs, ezpap acapella ambulate (3) Diabetes mellitus Plan: HGB aic 6.8, nursing educator consult needs BGM machine at home levemir start po meds metformin (4) Hyperlipemia Plan: on statin (5) Tobacco abuse Plan: smoking cessation (6) Hypertension Plan: on BB Usha Flynn Dec 15, 2016 11:14
[2016-12-15] MEDS ORDERED: BISACODYL 10 MG SUPP RECTAL ONE (12:00)
[2016-12-15] MEDS: GABAPENTIN 300 MG CAP PO SCH ×2 (12:00→20:43)
[2016-12-15] MEDS ORDERED: DOCU1CAP39 PO (13:28)
[2016-12-15] MEDS ORDERED: THERM PO (13:28)
[2016-12-15] MEDS ORDERED: AMIO200T PO (13:28)
[2016-12-15] MEDS ORDERED: NEUR300C PO (13:28)
[2016-12-15] MEDS ORDERED: ATEN25TA PO (13:28)
[2016-12-15] MEDS ORDERED: NOVOLOGP2 SQ (13:33)
[2016-12-15] MEDS ORDERED: GLUCTES12 (13:33)
[2016-12-15] MEDS ORDERED: LANCETS1 MI1 (13:33)
[2016-12-15] MEDS ORDERED: INSU1MIS15 (13:33)
[2016-12-15] MEDS ORDERED: GLUCKIT15 (13:33)
--- NOTE | 2016-12-15 13:37 | HHI.DS ---
Discharge Summary Admission Date Dec 11, 2016 at 15:20 Discharge Date: Dec 16, 2016 Admitting Diagnosis chest pain (1) Coronary artery disease Diagnosis: Principal (2) Hyperlipemia Diagnosis: Principal (3) Tobacco abuse Diagnosis: Principal (4) Hypertension Diagnosis: Principal (5) Diabetes mellitus Diagnosis: Principal (6) S/P CABG x 3 Diagnosis: Secondary Procedures CABG x 3 12/12 BLOUNT to LAD - fair SVG to OM1 - good SVG to PDA - poor EVH Brief History 46/ male c/o of chest pressure off and on x 10 months, worsening with and without exertion past couple of months, underwent stress test , which showed depression in inferior lateral leads.. Then underwent heart cath per Dr Stevesnon multi vessel disease EF 45 % / eval for Coronary artery Bypass grafting PMH: HTN, HLP, obesity, tobacco abuse, DM, dyspepsia, GERD 12/12 surgery :CABG x 3, BLOUNT to LAD - fair, SVG to OM1 - good, SVG to PDA - poor, L EVH CPB 84 min, cellsaver 850, crystalloid 2500, urine 400cc extubated after surgery CBC/BMP: 12/14/16 0330 12/14/16 0330 Significant Findings Laboratory Tests Test 12/13/16 12/14/16 05:10 03:30 White Blood Count 17.9 TH/MM3 13.7 TH/MM3 (4.0-11.0) (4.0-11.0) Hematocrit 38.9 % 34.8 % (39.0-51.0) (39.0-51.0) Chloride Level 110 MEQ/L (98-107) Random Glucose 137 MG/DL 125 MG/DL (74-106) (74-106) Calcium Level 8.0 MG/DL 8.2 MG/DL (8.5-10.1) (8.5-10.1) Red Blood Count 4.12 MIL/MM3 (4.50-5.90) Hemoglobin 11.4 GM/DL (13.0-17.0) Neutrophils (%) (Auto) 80.3 % (16.0-70.0) Neutrophils # (Auto) 11.0 TH/MM3 (1.8-7.7) Monocytes # (Auto) 1.1 TH/MM3 (0-0.9) Estimat Glomerular Filtration 73 ML/MIN (>89) Rate Imaging Last Impressions Chest X-Ray 12/15/16 0600 Signed Impressions: Service Date/Time: Thursday, December 15, 2016 04:23 - CONCLUSION: No obvious pneumothorax status post chest tube removal. Samuel Mccoy MD Lower Extremity Ultrasound 12/11/16 0000 Signed Impressions: Service Date/Time: Sunday, December 11, 2016 17:48 - CONCLUSION: Normal examination for a patient of this age. Rene Dumont MD Carotid Artery Ultrasound 12/11/16 0000 Signed Impressions: Service Date/Time: Sunday, December 11, 2016 17:21 - CONCLUSION: 1. Minimal visible plaque around the right carotid bifurcation. No hemodynamically significant stenosis. Rene Dumont MD PE at Discharge GENERAL: SKIN: Warm and dry./ prevena to chest, incision to left leg intact HEAD: Normocephalic. EYES: No scleral icterus. No injection or drainage. NECK: Supple, trachea midline. No JVD or lymphadenopathy. CARDIOVASCULAR: Regular rate and rhythm without murmurs, gallops, or rubs. RESPIRATORY: Breath sounds equal bilaterally. No accessory muscle use. GASTROINTESTINAL: Abdomen soft, non-tender, nondistended. MUSCULOSKELETAL: No cyanosis, or edema. BACK: Nontender without obvious deformity. No CVA tenderness. Hospital Course 12/12 surgery :CABG x 3, BLOUNT to LAD - fair, SVG to OM1 - good, SVG to PDA - poor, L EVH CPB 84 min, cellsaver 850, crystalloid 2500, urine 400cc extubated after surgery 12/13 doing well, up in chair, on nasal cannula weaning off insulin gtt, start levemir gentle diuresis transfer to stepdown 12/14 add home metformin, will need BGM machine and test strips for home add additional diuresis BP stable, remains in NSR on room air 12/15 blood sugars improving c/o burning sensation upper right thigh on room air, in NSR plan for dc in am Pt Condition on Discharge: Good Discharge Disposition: Disch w/ Home Health Serv Discharge Instructions DIET: Follow Instructions for: Heart Healthy Diet, Diabetic Diet Activities you can perform: Weight Bearing as Christine, Shower/Bath Activities to avoid: Lifting/Bending, Strenuous Activity, Driving Additional Activity Instructio: no lifting >8 lbs or gallon of milk Follow up Referrals: Cardiology PCP Follow-up Surgical New Orders: BASIC METABOLIC PROF - 2 Weeks CBC NO DIFF - 2 Weeks X-RAY CHEST PA & LAT - 2 Weeks New Medications: Blood Glucose Monitoring W/Device (Glucocom Blood Glucose Mo W/Device) 1 Kit Kit 1 KIT .ROUTE DIRECTED Blood Sugar Management #1 KIT Glucocom Test Strips (Glucocom Test Strips) 1 Zhanna Zhanna 1 EA .ROUTE DIRECTED check blood sugar before meals breakfast lunch and dinner Blood Sugar Management #90 Ref 1 BOX Insulin Aspart Inj (Novolog Inj) 1,000 Unit/10 Ml Vial 1-9 UNITS SQ TIDAC Max dose at bedtime:( )units; sugars less than 70,(0)units; sugars 150-199,(1) unit; sugars 200-249,(3) units; sugars 250-299,(5) units; sugars 300-349,(7) units; sugars greater than 349,(9) units Blood Sugar Management #10 Ref 2 ML Insulin Syringe/U-100/31G X 5/16" 1 ml (Insulin Syringe/U-100/31G X 5/16" 1 ml) 1 Mis Mis 1 EA .ROUTE DIRECTED one month supply check blood sugar tid Blood Sugar Management #1 Ref 0 BOX Lancets (Lancets) 1 Mis Mis 1 EA .ROUTE DIRECTED check blood sugar 3 x a day before meals breakfast lunch and dinner Blood Sugar Management #1 Ref 0 BOX Amiodarone (Amiodarone) 200 Mg Tab 200 MG PO Q12HR heart rhythm #28 Ref 0 TAB Atenolol (Atenolol) 25 Mg Tab 25 MG PO DAILY Blood Pressure Management #30 Ref 2 TAB Docusate Sodium (Dok) 100 Mg Cap 100 MG PO BID Constipation #60 CAP Gabapentin (Neurontin) 300 Mg Cap 300 MG PO BID nerve pain #60 Ref 1 CAP Multiple Vitamins W/ Minerals (Thera M Plus) 1 Tab 1 TAB PO DAILY multi vitamin #30 TAB Continued Medications: Aspirin (Aspirin) 81 Mg Tabdr 81 MG PO DAILY TAB Atorvastatin (Atorvastatin) 40 Mg Tab 40 MG PO HS Cholesterol Management #30 Ref 0 TAB Metformin (Metformin) 500 Mg Tab 500 MG PO TIDPC With meals Blood Sugar Management #90 Ref 0 TAB Pantoprazole (Protonix) 40 Mg Tab 40 MG PO DAILY Reflux #30 Ref 0 TAB Simethicone (Gas-X) 80 Mg Chew 80 MG CHEW QID PRN GAS RETENTION Ref 0 TAB Additional Information check blood sugar 3 x a day before meals/ breakfast lunch and dinner and use insulin sliding scale Usha Flynn Dec 15, 2016 13:37
[2016-12-15] MEDS: SENNOSIDES 8.6 MG TAB PO SCH (20:43)
[2016-12-15] MEDS: ATORVASTATIN 40 MG TAB PO SCH (20:43)
[2016-12-16] VITALS (10 sets, daily range): BP systolic 121–126; BP diastolic 64–68; PULSE 68–77; RESP 16–20; TEMP 98.7–98.8; O2SAT 91–96
[2016-12-16] MEDS: AMIODARONE 200 MG TAB PO SCH ×2 (00:52→06:06)
[2016-12-16] MEDS: oxyCODONE/ACETAMINOPHEN 5 MG/325 MG TAB PO PRN ×3 (00:56→09:42)
[2016-12-16] MEDS: INSULIN ASPART SUPPLEMENTAL SCALE SQ SCH (06:11)
[2016-12-16] MEDS: ONDANSETRON HCL 4 MG/2 ML VIAL IVP PRN (06:15)
[2016-12-16] MEDS: MULTIVITAMINS/MINERALS THERAPEUTIC TAB PO SCH (09:36)
[2016-12-16] MEDS: GABAPENTIN 300 MG CAP PO SCH (09:36)
[2016-12-16] MEDS: ASPIRIN EC 81 MG TABEC PO SCH (09:36)
[2016-12-16] MEDS: PANTOPRAZOLE SOD 40 MG DELAYED RELEASE TAB PO SCH (09:37)
[2016-12-16] MEDS: ATENOLOL 25 MG TAB PO SCH (09:37)
[2016-12-16] MEDS: DOCUSATE SODIUM 100 MG CAP PO SCH (09:38)
[2016-12-16] MEDS: metFORMIN HCL 500 MG TAB PO SCH (09:38)
[2016-12-16] MEDS: SODIUM CHLORIDE 0.9% FLUSH 5 ML FLUSH IV FLUSH SCH (09:38)
[2016-12-16] MEDS: MAGNESIUM HYDROXIDE SUSP 30 ML CUP PO SCH (09:40)
[2016-12-16] MEDS: INSULIN DETEMIR 100 UNITS/ML VIAL SQ SCH (09:41)
--- NOTE | 2017-01-01 10:32 | RSPPFT ---
DATE OF PROCEDURE: 12/11/16 COMMENTS: Spirometry is within normal limits. The FEV1/FVC ratio is 82%. Flow volume loops appear unremarkable. IMPRESSION: 1. Essentially normal pulmonary function study.
== END 2016-12-16 12:19 | disposition home health service (06) | DRG 234 ==
LOC: HDOC 09:48 → HDIC 09:49 → HDOC 15:24 → HCPC 19:00 → HCVR 12-12 17:40 → HCPC 12-13 10:38
PROVIDERS: ADMIT Thoracic Surgery (Cardiothoracic Vascular Surgery); ATTEND Thoracic Surgery (Cardiothoracic Vascular Surgery)
PROC: 4A023N7 Measurement of Cardiac Sampling and Pressure, Left Heart, Percutaneous Approach (ICD-10-PCS; 2016-12-11)
PROC: B2111ZZ Fluoroscopy of Multiple Coronary Arteries using Low Osmolar Contrast (ICD-10-PCS; 2016-12-11)
PROC: B2151ZZ Fluoroscopy of Left Heart using Low Osmolar Contrast (ICD-10-PCS; 2016-12-11)
PROC: 021109W Bypass Coronary Artery, Two Arteries from Aorta with Autologous Venous Tissue, Open Approach (ICD-10-PCS; 2016-12-12)
PROC: 06BQ4ZZ Excision of Left Saphenous Vein, Percutaneous Endoscopic Approach (ICD-10-PCS; 2016-12-12)
PROC: 5A1221Z Performance of Cardiac Output, Continuous (ICD-10-PCS; 2016-12-12)
PROC: 02100Z9 Bypass Coronary Artery, One Artery from Left Internal Mammary, Open Approach (ICD-10-PCS; principal; 2016-12-12 12:42)
DX: I25.110 Atherosclerotic heart disease of native coronary artery with unstable angina pectoris (principal); I25.82 Chronic total occlusion of coronary artery; K21.9 Gastro-esophageal reflux disease without esophagitis; I10 Essential (primary) hypertension; E78.5 Hyperlipidemia, unspecified; Z72.0 Tobacco use; Z82.49 Family history of ischemic heart disease and other diseases of the circulatory system; Z83.3 Family history of diabetes mellitus; E11.9 Type 2 diabetes mellitus without complications; E66.9 Obesity, unspecified; Z68.35 Body mass index [BMI] 35.0-35.9, adult
CPT/HCPCS: 36430; 71010; 76937; 80048; 81001; 82948; 83036; 83735; 85014; 85025; 85027; 85610; 86850; 86900; 86901; 86920; 87641; 93005; 93458; 93880; 93970; 93998; 94010; 94150; 94640; 94664; 94667; 94668; C1769; C1893; C9399; J0131; J0282; J0690; J1265; J1644; J1815; J1817; J1885; J1940; J2150; J2250; J2370; J2405; J2440; J2720; J2930; J3010; J3370; J3475; J3480; J7040; J7050; J7120; P9016; P9047; Q9967

== ENCOUNTER → 2017-04-09 | Day surgery (SDC) | payer OTHER ==
[~2017-04-09] MED LIST changes: +AMIO200T PO; +ASPI1TAB69 PO; -ATEN-100 PO; +ATEN25TA PO; +ATOR40TA16 PO; +DOCU1CAP39 PO; +GAS-80CH CHEW; +GLUCKIT15; +GLUCTES12; +INSU1MIS15; +LACTATED RINGER'S 1000 ML INJ 1,000 ML ONE; +LANCETS1 MI1; +METF500T PO; +NEUR300C PO; -NIAC100T3 PO; +NOVOLOGP2 SQ; +PROPOFOL 500 MG/50 ML BTL IV ONE; +PROT40TA PO; -SIMV20TA PO; +THERM PO
--- NOTE | 2017-04-09 11:03 | GIPROC ---
[facility] [address], [address] EGD PROCEDURE REPORT EXAM DATE: 04/09/2017 PATIENT NAME: Honorio Roland MR #: [id number] BIRTHDATE: 1970 ATTENDING: Ellen Davidson MD ORDER #: [id number] CALL OR CONTACT CENTRE COACH: Areli Blanc RN STATUS: outpatient INDICATIONS: The patient is a 46 yr old male here for an EGD due to reflux, nausea PROCEDURE PERFORMED: EGD w/ biopsy MEDICATIONS: None and Per Anesthesia. TOPICAL ANESTHETIC: none CONSENT: The patient understands the risks and benefits of the procedure and understands that these risks include, but are not limited to: sedation, allergic reaction, infection, perforation and/or bleeding. Alternative means of evaluation and treatment include, among others: physical exam, x-rays, and/or surgical intervention. The patient elects to proceed with this endoscopic procedure. medical equipment was checked for proper function. Hand hygiene and appropriate measures for infection prevention was taken. After the risks, benefits and alternatives of the procedure were thoroughly explained, Informed consent was verified, confirmed and timeout was successfully executed by the treatment team. The patient was anesthetized with topical anesthesia and the EC-[id number] ([id number]) endoscope was introduced through the mouth and advanced to the second portion of the duodenum. Retroflexed views revealed a hiatal hernia The gastroscope was then slowly withdrawn and removed. Duodenitis second portion and duodenum-biopsy gastritis antrum-biopsy irregular z line-biopsy. ADVERSE EVENTS: There were no complications. IMPRESSIONS: 1. Duodenitis second portion and duodenum-biopsy gastritis antrum-biopsy irregular z line-biopsy 2. Retroflexed views revealed a hiatal hernia RECOMMENDATIONS: 1. Anti-reflux regimen 2. Avoid NSAIDS PATIENT CONDITION: stable DISPOSITION: Home REPEAT EXAM: EGD pending biopsy results Ellen Davidson MD eSigned: Ellen Davidson MD 04/09/2017 11:03 AM cc: Clyde Panchal [facility] Seema Mesa M.D. PATIENT NAME: Honorio Roland MR#: [id number]
--- NOTE | 2017-04-09 11:07 | GIPROC ---
[facility] [address], [address] COLONOSCOPY PROCEDURE REPORT EXAM DATE: 04/09/2017 PATIENT NAME: Honorio Roland MR #: [id number] BIRTHDATE: 1970 ENDOSCOPIST: Ellen Davidson MD ORDER #: [id number] COACH OPERATOR: Areli Blanc RN STATUS: outpatient INDICATIONS: The patient is a 46 yr old male here for a colonoscopy due to change in bowel habits PROCEDURE PERFORMED: Colonoscopy with biopsy MEDICATIONS: None and Per Anesthesia. PREP QUALITY: fair PREP TYPE:GoLytely ESTIMATED BLOOD LOSS: None CONSENT: The patient understands the risks and benefits of the procedure and understands that these risks include, but are not limited to: sedation, allergic reaction, infection, perforation and/or bleeding. Alternative means of evaluation and treatment include, among others: physical exam, x-rays, and/or surgical intervention. The patient elects to proceed with this endoscopic procedure. medical equipment was checked for proper function. Hand hygiene and appropriate measures for infection prevention was taken. After the risks, benefits and alternatives of the procedure were thoroughly explained, Informed consent was verified, confirmed and timeout was successfully executed by the treatment team. A digital exam revealed internal hemorrhoids and revealed external hemorrhoids The EC-[id number] ([id number]) endoscope was introduced through the anus and advanced to the cecum, which was identified by both the appendix and ileocecal valve. The instrument was then slowly withdrawn as the colon was fully examined. COLON FINDINGS: Diverticulosis sigmoid,descending diminutive polyp on IC valve -biopsy. Retroflexed views revealed internal hemorrhoids and Retroflexed views revealed small internal hemorrhoids The scope was then completely withdrawn from the patient and the procedure terminated. PROCEDURE WITHDRAWAL TIME:10minutes ADVERSE EVENTS: There were no complications. IMPRESSIONS: 1. Diverticulosis sigmoid,descending diminutive polyp on IC valve -biopsy 2. Retroflexed views revealed internal hemorrhoids 3. Retroflexed views revealed small internal hemorrhoids 4. Revealed internal hemorrhoids 5. Revealed external hemorrhoids RECOMMENDATIONS: 1. Await biopsy results. Biopsy results will not be ready for 7-10 days. If you don't hear from us in two weeks, call our office for results. 2. Benefiber 2 tsp daily 3. Probiotics from any C or health food store 4. Yearly rectal exams RECALL: Colonoscopy, pending biopsy results Ellen Davidson MD eSigned: Ellen Davidson MD 04/09/2017 11:06 AM cc: [facility] Gary Mesa M.D. PATIENT NAME: Honorio Roland MR#: [id number]
== END | disposition home or self-care (01) ==
LOC: ESDC 09:11
PROVIDERS: ATTEND Internal Medicine Gastroenterology
DX: R19.4 Change in bowel habit (principal); K21.9 Gastro-esophageal reflux disease without esophagitis; K57.90 Diverticulosis of intestine, part unspecified, without perforation or abscess without bleeding; K63.5 Polyp of colon; K62.1 Rectal polyp; K64.8 Other hemorrhoids; K64.4 Residual hemorrhoidal skin tags; R11.0 Nausea; K44.9 Diaphragmatic hernia without obstruction or gangrene; K29.80 Duodenitis without bleeding; K29.70 Gastritis, unspecified, without bleeding; K22.9 Disease of esophagus, unspecified
CPT/HCPCS: 00740; 00810; 43239; 45380; 88305; 88312; J3010; J7120